=== PATIENT | female | born 1985 | race Caucasian/White ===

== ENCOUNTER → 2017-12-14 07:39 | Outpatient (CLI) | payer OTHER, SELFPAY ==
[2017-12-14 08:29] LABS: Add Manual Diff / Slide Review NO; Basophils Percent Auto 0.5 % (0-2); Eosinophils Percent Auto 1.4 % (2-4); Hematocrit 38.7 % (36-46); Hemoglobin 13.1 g/dL (12.0-16.0); Lymphocytes Percent Auto 30.1 % (25-40); Mean Corpuscular HGB Conc 33.8 % (30-36); Mean Corpuscular Hemoglobin 27.8 PG (26-34); Mean Corpuscular Volume 82.3 fL (80-100); Neutrophils Absolute Auto 4200 /uL (3000-5900); Platelet Count 209 X10^3/uL (150-400); Red Cell Distribution Width 13.8 % (11.6-14.8); White Blood Cell Count 6.9 X10^3/uL (4.5-11.0)
[2017-12-14 08:44] LABS: Alanine Aminotransferase 26 IU/L (9-52); Albumin 4.2 g/dL (3.5-5.0); Albumin Globulin Ratio 1.4 (1.0-2.8); Alkaline Phosphatase 80 U/L (38-126); Aspartate Aminotransferase 22 IU/L (14-36); BUN Creatinine Ratio 11.3 (6-22); Bilirubin Total 0.5 mg/dL (0.2-1.3); Blood Urea Nitrogen 9 mg/dL (7-17); Calcium 9.2 mg/dL (8.4-10.2); Carbon Dioxide 25 mmol/L (22-32); Chloride 103 mmol/L (98-107); Cholesterol 238 mg/dL (140-199); Estimated Glomerular Filt Rate > 60.0 mL/min (>60); Glucose 101 mg/dL (70-100); HDL Cholesterol 76 mg/dL (40-60); HEMOLYSIS < 15 (0-50); LDL Cholesterol Calculated 113 mg/dL (<100); Potassium 4.3 mmol/L (3.4-5.1); Sodium 139 mmol/L (137-145); Total Protein 7.2 g/dL (6.3-8.2); Triglycerides 243 mg/dL (35-150)
[2017-12-14 08:53] LABS: Hemoglobin A1C% w Est Avg Glu 5.3 % (4.0-6.0)
[2017-12-14 09:17] LABS: Thyroid Stimulating Hormone 3.31 uIU/mL (0.47-4.68)
== END ==
PROVIDERS: PCP Family Medicine; Visit Provider Family Medicine
DX: Z00.00 Encounter for general adult medical examination without abnormal findings (principal)
CPT/HCPCS: 36415; 80053; 80061; 83036; 84443; 85025

== ENCOUNTER → 2018-03-28 10:00 | Outpatient (CLI) | payer OTHER, SELFPAY | PROVIDERS: Family Provider Family Medicine; PCP Family Medicine | DX: Z23 Encounter for immunization (principal) | CPT/HCPCS: 90471; 90686 ==

== ENCOUNTER → 2018-11-02 06:50 | Outpatient (CLI) | payer OTHER, SELFPAY ==
[2018-11-02 09:25] LABS: Add Manual Diff / Slide Review NO; Basophils Absolute Auto 0 /uL (0-100); Basophils Percent Auto 0.5 % (0-2); Eosinophils Absolute Auto 100 /uL (0-450); Eosinophils Percent Auto 1.7 % (2-4); Hematocrit 42.7 % (36-46); Hemoglobin 14.2 g/dL (12.0-16.0); Lymphocytes Absolute Auto 2600 /uL (1100-4500); Lymphocytes Percent Auto 32.6 % (25-40); Mean Corpuscular HGB Conc 33.3 % (30-36); Mean Corpuscular Hemoglobin 29.9 PG (26-34); Mean Corpuscular Volume 89.8 fL (80-100); Monocytes Absolute Auto 600 /uL (0-900); Neutrophils Absolute Auto 4700 /uL (1500-7000); Neutrophils Percent Auto 58.2 % (50-75); Platelet Count 232 X10^3/uL (150-400); Red Blood Cell Count 4.76 X10^6/uL (4.0-5.2); White Blood Cell Count 8.1 X10^3/uL (4.5-11.0)
[2018-11-02 09:43] LABS: Alanine Aminotransferase 26 IU/L (9-52); Albumin 4.3 g/dL (3.5-5.0); Albumin Globulin Ratio 1.5 (1.0-2.8); Alkaline Phosphatase 79 U/L (38-126); Aspartate Aminotransferase 25 IU/L (14-36); BUN Creatinine Ratio 16.3 (6-22); Bilirubin Total 0.4 mg/dL (0.2-1.3); Blood Urea Nitrogen 13 mg/dL (7-17); Calcium 9.2 mg/dL (8.4-10.2); Carbon Dioxide 25 mmol/L (22-32); Chloride 103 mmol/L (98-107); Estimated Glomerular Filt Rate > 60.0 mL/min (>60); Globulin 2.8 g/dL (1.7-4.1); Glucose 95 mg/dL (70-100); HEMOLYSIS < 15 (0-50); Potassium 4.1 mmol/L (3.4-5.1); Sodium 137 mmol/L (137-145); Total Protein 7.1 g/dL (6.3-8.2)
[2018-11-02 10:00] LABS: Free T4, Direct Thyroxine 0.77 ng/dL (0.78-2.19)
[2018-11-02 10:13] LABS: Thyroid Stimulating Hormone 2.83 uIU/mL (0.47-4.68)
== END ==
PROVIDERS: Family Provider Family Medicine; PCP Family Medicine; Visit Provider Psychiatry & Neurology Psychiatry
DX: F33.9 Major depressive disorder, recurrent, unspecified (principal); F41.9 Anxiety disorder, unspecified
CPT/HCPCS: 36415; 80053; 84439; 84443; 85025

== ENCOUNTER → 2019-04-10 07:42 | Outpatient (CLI) | payer OTHER, SELFPAY | PROVIDERS: Family Provider Family Medicine; PCP Physician Assistant | DX: Z23 Encounter for immunization (principal) | CPT/HCPCS: 90471; 90686 ==

== ENCOUNTER → 2019-08-02 13:40 | Outpatient (ROUT) | payer OTHER, SELFPAY ==
[2019-08-02 15:16] LABS: Urine N gonorrhoeae NOT DETECTED
[2019-08-02 15:22] LABS: Urine Chlamydia DETECTED
== END ==
PROVIDERS: Family Provider Family Medicine; PCP Physician Assistant; Visit Provider Physician Assistant
DX: N89.8 Other specified noninflammatory disorders of vagina (principal)
CPT/HCPCS: 87491; 87591

== ENCOUNTER → 2019-08-02 16:35 | Outpatient (CLI) | payer OTHER, SELFPAY ==
[2019-08-02 18:53] LABS: Hepatitis B Surface Antigen NEGATIVE s/c (NEGATIVE)
[2019-08-02 19:08] LABS: HIV 1 & 2 Ab/Ag 4th Gen Combo NEGATIVE (NEGATIVE); Hep C Virus Ab w/Reflex Quant NEGATIVE s/c (NEGATIVE)
[2019-08-05 17:43] LABS: RPR Screen Nonreactive (Nonreactive)
[2019-08-09 14:45] LABS: HSV 1 IgM Screen Positive (Negative); HSV 2 IgM Screen Negative (Negative)
== END ==
PROVIDERS: Family Provider Physician Assistant; PCP Physician Assistant; Visit Provider Physician Assistant
DX: N89.8 Other specified noninflammatory disorders of vagina (principal); Z11.3 Encounter for screening for infections with a predominantly sexual mode of transmission
CPT/HCPCS: 36415; 86592; 86695; 86696; 86803; 87210; 87340; 87389; 87491; 87591

== ENCOUNTER → 2019-12-21 08:02 | Outpatient (CLI) | payer OTHER, SELFPAY ==
[2019-12-21 09:18] LABS: Add Manual Diff / Slide Review NO; Basophils Absolute Auto 0 /uL (0-100); Basophils Percent Auto 0.9 % (0-2); Eosinophils Absolute Auto 100 /uL (0-450); Eosinophils Percent Auto 2.2 % (2-4); Hematocrit 41.7 % (36-46); Hemoglobin 14.4 g/dL (12.0-16.0); Lymphocytes Absolute Auto 1800 /uL (1100-4500); Lymphocytes Percent Auto 37.2 % (25-40); Mean Corpuscular HGB Conc 34.6 % (30-36); Mean Corpuscular Hemoglobin 31.2 PG (26-34); Mean Corpuscular Volume 90.1 fL (80-100); Monocytes Absolute Auto 400 /uL (0-900); Monocytes Percent Auto 7.7 % (3-14); Neutrophils Absolute Auto 2500 /uL (1500-7000); Platelet Count 200 X10^3/uL (150-400); Red Blood Cell Count 4.63 X10^6/uL (4.0-5.2); Red Cell Distribution Width 12.7 % (11.6-14.8); White Blood Cell Count 4.9 X10^3/uL (4.5-11.0)
[2019-12-21 09:41] LABS: Hemoglobin A1C% w Est Avg Glu 5.3 % (4.0-6.0)
[2019-12-21 09:45] LABS: Alanine Aminotransferase 19 IU/L (<35); Albumin 4.2 g/dL (3.5-5.0); Albumin Globulin Ratio 1.4 (1.0-2.8); Alkaline Phosphatase 84 U/L (38-126); Aspartate Aminotransferase 26 IU/L (14-36); BUN Creatinine Ratio 14.1 (6-22); Bilirubin Total 0.5 mg/dL (0.2-1.3); Blood Urea Nitrogen 11 mg/dL (7-17); Calcium 9.5 mg/dL (8.4-10.2); Carbon Dioxide 27 mmol/L (22-32); Chloride 104 mmol/L (98-107); Cholesterol 256 mg/dL (140-199); Estimated Glomerular Filt Rate > 60.0 mL/min (>60); Glucose 107 mg/dL (70-100); HDL Cholesterol 62 mg/dL (40-60); HEMOLYSIS < 15 (0-50); LDL Cholesterol Calculated 163 mg/dL (<100); Potassium 4.5 mmol/L (3.4-5.1); Sodium 138 mmol/L (137-145); Total Protein 7.2 g/dL (6.3-8.2); Triglycerides 154 mg/dL (35-150)
== END ==
PROVIDERS: Family Provider Physician Assistant; PCP Family Medicine; Referring Provider Family Medicine; Visit Provider Family Medicine
DX: Z76.89 Persons encountering health services in other specified circumstances (principal)
CPT/HCPCS: 36415; 80053; 80061; 83036; 84443; 85025

== ENCOUNTER → 2020-05-01 01:13 | Outpatient (CLI) | payer OTHER, SELFPAY | PROVIDERS: Family Provider Physician Assistant; PCP Family Medicine; Referring Provider Internal Medicine; Visit Provider Internal Medicine | DX: Z23 Encounter for immunization (principal) | CPT/HCPCS: 90471; 90686 ==

== ENCOUNTER → 2020-05-19 10:12 | Outpatient (CLI) | payer OTHER, SELFPAY ==
[2020-05-19 10:46] LABS: COVID19 -Nasal RAPID Negative (Negative)
== END ==
PROVIDERS: Family Provider Physician Assistant; PCP Family Medicine; Visit Provider Physician Assistant
DX: Z11.59 Encounter for screening for other viral diseases (principal)
CPT/HCPCS: 87635

== ENCOUNTER → 2020-07-25 09:00 | Outpatient (CLI) | payer OTHER, SELFPAY ==
[2020-07-25] MEDS: COVID-19 VACC(MODERNA-1)/PF 100 MCG/0.5 ML VIAL IM (09:04)
== END ==
PROVIDERS: Family Provider Physician Assistant; PCP Family Medicine; Visit Provider Internal Medicine
DX: Z23 Encounter for immunization (principal)
CPT/HCPCS: 0011A; 91301

== ENCOUNTER → 2020-08-22 13:21 | Outpatient (CLI) | payer OTHER, SELFPAY ==
[2020-08-22] MEDS: COVID-19 VACC #2, MRNA(MOD) 100 MCG/0.5 ML VIAL IM (13:27)
== END ==
PROVIDERS: Family Provider Physician Assistant; PCP Family Medicine; Visit Provider Internal Medicine
DX: Z23 Encounter for immunization (principal)
CPT/HCPCS: 0012A; 91301

== ENCOUNTER → 2020-10-20 10:28 | Outpatient (CLI) | payer OTHER, SELFPAY | PROVIDERS: Family Provider Physician Assistant; PCP Family Medicine; Visit Provider Physician Assistant | DX: J02.9 Acute pharyngitis, unspecified (principal) | CPT/HCPCS: 87070 ==

== ENCOUNTER → 2020-10-22 11:37 | Outpatient (CLI) | payer OTHER, SELFPAY ==
[2020-10-22 13:15] LABS: COVID19 -Nasal RAPID Negative (Negative)
== END ==
PROVIDERS: Family Provider Physician Assistant; PCP Family Medicine; Visit Provider Physician Assistant
DX: Z01.812 Encounter for preprocedural laboratory examination (principal); Z20.822 Contact with and (suspected) exposure to COVID-19
CPT/HCPCS: 87635

== ENCOUNTER → 2021-03-07 11:45 | Outpatient (CLI) | payer OTHER, SELFPAY ==
[2021-03-07 13:32] LABS: COVID19 -Nasal RAPID Negative (Negative)
== END ==
PROVIDERS: PCP Family Medicine; Referring Provider Physician Assistant; Visit Provider Physician Assistant
DX: Z20.822 Contact with and (suspected) exposure to COVID-19 (principal); R53.83 Other fatigue
CPT/HCPCS: 87635

== ENCOUNTER 2021-04-09 08:15 | Outpatient (RCR) | payer OTHER, SELFPAY ==
--- NOTE | 2020-11-10 12:49 | PT.OIE ---
Current Diagnoses Plantar fascial fibromatosis (11/10/20) Pain in right foot (11/10/20) Pain in left foot (11/10/20) Soft tissue disorder, unspecified (11/10/20) Past Medical History (Last Updated 10/20/20 @ 10:06 by China Blanco PA-C) Anxiety Chicken pox Depression Foot pain Frequent UTI Human papilloma virus Hyperlipidemia Pharyngitis Plantar fasciitis, bilateral Shoulder pain Well adult exam Past Surgical History (Last Updated 04/25/19 @ 22:14 by Linnette Guzman) Anesthesia History of skin surgery History of surgery History of third molar tooth extraction Visit Care Team Role Provider Type Anant Watt DO Primary Care Provider Physician Specialty: Family Practice Address: [address] [place] [address], [id number] Email: [email or web address] Corrie Hanna DPM Attending Provider Physician Referring Provider Specialty: Podiatry Address: [address] [place] [address], [address] Email: [email or web address] [facility] Initial Evaluation PT-OP-A Visit Information Start: 11/09/20 08:02 Freq: Status: Active Protocol: Document 11/10/20 09:03 SAK (Rec: 11/10/20 10:26 SAK [id number]) Out-Patient Physical Therapy Visit Information Visit Information Visit Type Initial Evaluation Visit Start Time 09:00 Visit Stop Time 09:53 Total Visit Minutes 53 Visit Number 1 Number of NOZZLE CEMENT SPRAYER HELPER Visits 0 Evaluation Information Evaluation Date 11/10/20 PT-OP-B Current Condition Start: 11/09/20 08:02 Freq: Status: Active Protocol: Document 11/10/20 09:03 SAK (Rec: 11/10/20 10:26 SAK [id number]) Current Condition History of Current Condition Onset Date 1 year Current Complaints bilateral foot pain right greater than left History of Current Condition Made the decision to start running to try to help with weight loss. Pain started in left foot plus developed solis splints. Now left foot mostly better except occasional pain , pain right foot persists, at this time cant jog or run 50 ft without experiencing severe pain in right heel. Aso affecting right knee. Looked up information online about how to deal with plantar fascitis and as been doing stretching, ankle motion , heel and toe raises, grabbing things with toes, using objects including frozen water bottle to roll out bottom of foot muscles , tool massaging calves, doing ABC's. Feels pain as soon as gets out of bed. Had 1 deep foot massage that relieved pain for a few days a few months ago, though didn't try running at that time. Has plantar fascitis off the shelf orthotics Superfeet, but is now trying Envelop gel orthotics which she reports have made some difference. On feet most of the day for her work as an [employer]. Has a 10K in March 2021. Has been running for 2 years. Tends to push hard when she runs. Currently walking Kior 1x/wk, sore next day. No biking, or other cross training. Has Saw Dr. Hanna Future Testing and Treatments Planned follow-up with Dr. Hanna after PT Treatment Goals Patient/Caregiver Goals Be able to walk and run without heel pain Prior Functional Status Baseline Function- ADL's Independent Baseline Function- Mobility Independent Baseline Function- Gait no pain or limitations Baseline Function- Recreation/Hobbies running Current Functional Impairments (Reported) Functional Limitations- ADL's painful when standing Functional Limitations- Mobility/Gait painful to stand and walk right greater than left, Functional Limitations- Work/School continues to work but is painful, on feet most of day Functional Limitations- Recreation/ unable to run Hobbies Personal Factors Other Personal Factors That May Effect tends to push too hard, not Therapy/Recovery take time to stretch. PT-OP-C Subjective Start: 11/09/20 08:02 Freq: Status: Active Protocol: Document 11/10/20 09:03 KATIE (Rec: 11/10/20 10:26 [facility] [id number]) OP-PT Pain Assessment Pain Assessment Grid Paper Pain Assessment Grid Completed Yes Location bilateral heels Intensity 6 Scale Used Numeric (0 - 10) Description Aching,Burning,Chronic,Sharp, Tender,Tightness Frequency Frequent Pain Aggravating Factors ADL's,Activity,Standing, Walking Pain Alleviating Factors Cold,Heat,Inactivity,Rest PT-OP-D Balance Start: 11/09/20 08:02 Freq: Status: Active Protocol: Document 11/10/20 09:03 SAK (Rec: 11/10/20 10:26 SAK [id number]) OP-PT Balance Assessment Standing Balance Static Standing Balance Ability Normal Dynamic Standing Balance Ability Normal Standing Balance Comments SLS 10+ sec brigido Leiva Fall Scale Copyright Permission PT-OP-F Manual Assessment Start: 11/09/20 08:02 Freq: Status: Active Protocol: Document 11/10/20 09:03 SAK (Rec: 11/10/20 10:26 SAK [id number]) Manual Assessments Joint Mobility Assessment Joint Mobility Assessment hypermobile throughout, hyperextends knees PT-OP-G Mobility & Gait Start: 11/09/20 08:02 Freq: Status: Active Protocol: Document 11/10/20 09:03 SAK (Rec: 11/10/20 10:26 SAK [id number]) OP Gait Assessment Gait Gait Assistance Required: Independent Assistive Devices Assistive Device None Gait Deviations General Gait Pattern Antalgic Factors Limiting Gait Function Factors Limiting Gait Function Pain Comments Gait Comments knee hyperextension with heavy heelstrike PT-OP-H Neuro Start: 11/09/20 08:02 Freq: Status: Active Protocol: Document 11/10/20 09:03 SAK (Rec: 11/10/20 10:26 SAK [id number]) Sensation Evaluation Gross Sensation Gross Sensation WNL PT-OP-J Posture/Palpation/Skin Start: 11/09/20 08:02 Freq: Status: Active Protocol: Document 11/10/20 09:03 SAK (Rec: 11/10/20 10:26 SAK [id number]) Posture Evaluation Position Standing Knee Posture (L) Genu Recurvatum,(R) Genu Recurvatum Ankle/Foot Posture (L) Pronated,(R) Pronated,(R) Forefoot Eversion Palpation Assessment Location plantar fascia Palpation Findings Soft Tissue Tightness brigido heels Palpation Findings Tenderness PT-OP-K Range of Motion Start: 11/09/20 08:02 Freq: Status: Active Protocol: Document 11/10/20 09:03 SAK (Rec: 11/10/20 10:26 SAK [id number]) Knee Goniometric Range of Motion Knee brigido Knee ROM WFL Yes Comments genu recurvatum brigido Ankle and Foot Goniometric Range of Motion Ankle and Foot brigido Dorsiflexion with Knee Flexed 10 Dorsiflexion with Knee Extended 0 Plantarflexion 65 PT-OP-M Strength Start: 11/09/20 08:02 Freq: Status: Active Protocol: Document 11/10/20 09:03 [facility] (Rec: 11/10/20 10:26 [facility] [id number]) Knee Strength Knee Manual Muscle Testing brigido Flexion (S2) 5 Normal Extension (L3) 5 Normal Ankle/Foot Strength Ankle and Foot Manual Muscle Testing Right Dorsiflexion (L4) 5 Normal Plantarflexion (S1) 5 Normal Inversion 4 Good Eversion (S1) 5 Normal Left Dorsiflexion (L4) 5 Normal Plantarflexion (S1) 5 Normal Inversion 5 Normal Eversion (S1) 5 Normal PT-OP-Q Treatments Start: 11/09/20 08:02 Freq: Status: Active Protocol: Document 11/10/20 09:03 [facility] (Rec: 11/10/20 10:26 [facility] [id number]) Manual Therapy Treatment Taping left foot and calf Treatment Focus pain relief Type of Tape Kinesio Tape Skin Inspection intact Comments I strip with base at heel, no stretch heel to base of toes, up center of calf I strip 50-75% stretch for arch support Self-Care/Home Management Treatment Education Patient Education Home Exercise Program,Joint Protection,Pain Management, Posture Other Education education for self-taping with kinesiotape for plantar fascitis PT-OP-R Modalities Start: 11/09/20 08:02 Freq: Status: Active Protocol: Document 11/10/20 09:03 [facility] (Rec: 11/10/20 10:26 [facility] [id number]) Hot Pack/Cold Pack Treatment Ice Massage Location right heel Patient Position Hooklying Treatment Duration (minutes) 3 Patient Tolerance Fair Iontophoresis Treatment right heel Treatment Medication Dexamethasone (-) Medication Amount (mL) (ml) 1.0 Medication Dosage 4 mg/ml Treatment Duration (minutes) 3 Comment Treatment Comment patient to wear 6 hrs PT-OP-T Assessment and Plan Start: 11/09/20 08:02 Freq: Status: Active Protocol: Document 11/10/20 09:03 [facility] (Rec: 11/10/20 10:26 [facility] [id number]) Physical Therapy Assessment Rehab Potential Rehabilitation Potential Excellent Evaluation Complexity Number of Personal Factors/Comorbidities 1-2 Number of Body Systems Impaired 3 Clinical Presentation at Evaluation Evolving Impairments Impairments Activity Tolerance,Pain, Posture,Soft Tissue Mobility Goals Four Impairment gastrocnemius muscle tightness Short Term Goal (STG) Patient to be independent with gastrocnemius stretching STG Duration 11/28/20 Principal Network Architect Goal (LTG) Patient will demonstrate normal ankle dorsiflexion ROM for improve foot function LTG Duration 02/08/21 Three Impairment Inability to stand, walk, or run without increase in foot pain Short Term Goal (STG) Patient will be able to tolerate a full workday and walk 2-3 miles without anb increase in pain STG Duration 12/05/20 Principal Network Architect Goal (LTG) Patient will be able to walk 5 miles, run 2-3 miles without an increase in pain LTG Duration 02/08/21 Two Impairment recurvatum brigido knees, brigido foot pronation, right foot eversion Short Term Goal (STG) Patient to demonstrate good understanding of neutral alignment and be independent with ther ex and self- correction of alignment STG Duration 12/05/20 [facility] Goal (LTG) Patient to demonstrate at least 75% improvement in LE alignment statically and dynamically LTG Duration 02/08/21 One Impairment pain brigido heels right greater than left 6/10 Short Term Goal (STG) decrease pain to no greater than 3/10 Principal Network Architect Goal (LTG) decrease pain to no greater than 1/10 LTG Duration 02/08/21 Assessment Summary Assessment Patient presents to PT with function-limiting heel pain right greater than left after initiating running 1 year ago. Signs and symptoms consistent with plantar fascitis. She has been diligent about trying to do exercise, ice, use orthotics. Left side has improved significantly with what she has been doing but pain persists especially in the right at a high level causing pain with standing and walking, and an inability to run for exercise as she would like to be able doing. Patient has limited ankle dorsiflexion bilaterally right greater than left, has brigido pronated feet right greater than left and everted right foot. She has been doing calf stretching with bent knee which we changed to straight knee to address gastrocnemius muscle. She was taught short foot exercise to improve strength of medial longitudinal arch, instruction regarding importance of neutral foot alignment, and decreasing her knee recurvatum was done. Ice massage and iontophoresis were done to right heel. Kinesiotape was applied to patient's left LE and she was instructed in self -taping and issued kinesiotape to use on right LE when iontophoresis patch removed later. She demonstrated a good understanding of the above, is highly motivated and receptive to instruction. Physical Therapy Plan Frequency and Duration Frequency of Treatment 20 visits Duration of Treatment 12 weeks Plan of Care Start Date 11/10/20 Plan of Care End Date 02/08/21 Therapeutic Interventions Therapeutic Interventions Gait Training,Home Exercise Program,Manual Therapy, Neuromuscular Re-education, Patient/Caregiver Education, Self-Care/Home Management,Soft Tissue Mobilization,Taping, Therapeutic Activities, Vestibular Rehabilitation Next Visit Focus/Plan Next Note Type Treatment Note Next Visit Plan Review HEP, self-taping, gait evaluation, progression of HEP as indicated. Trial ultrasound to heel. Continue with iontophoresis and kinesiotape.
--- NOTE | 2020-11-10 12:49 | PT.OPPOC ---
Physical, Occupational & Speech Therapy At [facility] Current Diagnoses Plantar fascial fibromatosis (11/10/20) Pain in right foot (11/10/20) Pain in left foot (11/10/20) Soft tissue disorder, unspecified (11/10/20) Visit Care Team Role Provider Type Anant Watt DO Primary Care Provider Physician Specialty: Family Practice Address: [address] [place] [address], [address] Email: [email or web address] Corrie Hanna DPM Attending Provider Physician Referring Provider Specialty: Podiatry Address: [address] [place] [address], [address] Email: [email or web address] Plan Of Care PT-OP-T Assessment and Plan Start: 11/09/20 08:02 Freq: Status: Active Protocol: Document 11/10/20 09:03 KATIE (Rec: 11/10/20 10:26 [facility] [id number]) Physical Therapy Assessment Rehab Potential Rehabilitation Potential Excellent Evaluation Complexity Number of Personal Factors/Comorbidities 1-2 Number of Body Systems Impaired 3 Clinical Presentation at Evaluation Evolving Impairments Impairments Activity Tolerance,Pain, Posture,Soft Tissue Mobility Goals Four Impairment gastrocnemius muscle tightness Short Term Goal (STG) Patient to be independent with gastrocnemius stretching STG Duration 11/28/20 Orthodontic Technician Goal (LTG) Patient will demonstrate normal ankle dorsiflexion ROM for improve foot function LTG Duration 02/08/21 Three Impairment Inability to stand, walk, or run without increase in foot pain Short Term Goal (STG) Patient will be able to tolerate a full workday and walk 2-3 miles without anb increase in pain STG Duration 12/05/20 Orthodontic Technician Goal (LTG) Patient will be able to walk 5 miles, run 2-3 miles without an increase in pain LTG Duration 02/08/21 Two Impairment recurvatum brigido knees, brigido foot pronation, right foot eversion Short Term Goal (STG) Patient to demonstrate good understanding of neutral alignment and be independent with ther ex and self- correction of alignment STG Duration 12/05/20 Orthodontic Technician Goal (LTG) Patient to demonstrate at least 75% improvement in LE alignment statically and dynamically LTG Duration 02/08/21 One Impairment pain brigido heels right greater than left 6/10 Short Term Goal (STG) decrease pain to no greater than 3/10 Detention Goal (LTG) decrease pain to no greater than 1/10 LTG Duration 02/08/21 Assessment Summary Assessment Patient presents to PT with function-limiting heel pain right greater than left after initiating running 1 year ago. Signs and symptoms consistent with plantar fascitis. She has been diligent about trying to do exercise, ice, use orthotics. Left side has improved significantly with what she has been doing but pain persists especially in the right at a high level causing pain with standing and walking, and an inability to run for exercise as she would like to be able doing. Patient has limited ankle dorsiflexion bilaterally right greater than left, has brigido pronated feet right greater than left and everted right foot. She has been doing calf stretching with bent knee which we changed to straight knee to address gastrocnemius muscle. She was taught short foot exercise to improve strength of medial longitudinal arch, instruction regarding importance of neutral foot alignment, and decreasing her knee recurvatum was done. Ice massage and iontophoresis were done to right heel. Kinesiotape was applied to patient's left LE and she was instructed in self -taping and issued kinesiotape to use on right LE when iontophoresis patch removed later. She demonstrated a good understanding of the above, is highly motivated and receptive to instruction. Physical Therapy Plan Frequency and Duration Frequency of Treatment 20 visits Duration of Treatment 12 weeks Plan of Care Start Date 11/10/20 Plan of Care End Date 02/08/21 Therapeutic Interventions Therapeutic Interventions Gait Training,Home Exercise Program,Manual Therapy, Neuromuscular Re-education, Patient/Caregiver Education, Self-Care/Home Management,Soft Tissue Mobilization,Taping, Therapeutic Activities, Vestibular Rehabilitation Next Visit Focus/Plan Next Note Type Treatment Note Next Visit Plan Review HEP, self-taping, gait evaluation, progression of HEP as indicated. Trial ultrasound to heel. Continue with iontophoresis and kinesiotape. Plan of Care Dates Plan of Care Start Date 11/10/20 Plan of Care End Date 02/08/21 Electronically Signed by: Destinee Sinha, PT 11/10/20 1249 Please Sign and Return: I have reviewed this Plan of Care and certify that the skilled therapy services above are required to meet the patient?s needs. Physician Signature Date Printed Name and Credentials Clinical Instructor Signature Printed Name and Credentials
--- NOTE | 2020-11-18 16:30 | PT.OTN ---
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) Pain in right foot (11/18/20) Pain in left foot (11/18/20) Soft tissue disorder, unspecified (11/18/20) Physical Therapy Treatment Note PT-OP-A Visit Information Start: 11/09/20 08:02 Freq: Status: Active Protocol: Document 11/10/20 09:03 SAK (Rec: 11/10/20 10:26 SAK [id number]) Out-Patient Physical Therapy Visit Information Visit Information Visit Type Initial Evaluation Visit Start Time 09:00 Visit Stop Time 09:53 Total Visit Minutes 53 Visit Number 1 Number of INTERNET MARKETER Visits 0 Evaluation Information Evaluation Date 11/10/20 PT-OP-B Current Condition Start: 11/09/20 08:02 Freq: Status: Active Protocol: Document 11/10/20 09:03 SAK (Rec: 11/10/20 10:26 SAK [id number]) Current Condition History of Current Condition Onset Date 1 year Current Complaints bilateral foot pain right greater than left History of Current Condition Made the decision to start running to try to help with weight loss. Pain started in left foot plus developed solis splints. Now left foot mostly better except occasional pain , pain right foot persists, at this time cant jog or run 50 ft without experiencing severe pain in right heel. Aso affecting right knee. Looked up information online about how to deal with plantar fascitis and as been doing stretching, ankle motion , heel and toe raises, grabbing things with toes, using objects including frozen water bottle to roll out bottom of foot muscles , tool massaging calves, doing ABC's. Feels pain as soon as gets out of bed. Had 1 deep foot massage that relieved pain for a few days a few months ago, though didn't try running at that time. Has plantar fascitis off the shelf orthotics Superfeet, but is now trying Envelop gel orthotics which she reports have made some difference. 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 Has a 10K in March 2021. Has been running for 2 years. Tends to push hard when she runs. Currently walking [employer] 1x/wk, sore next day. No biking, or other cross training. Has Saw Dr. Hanna Future Testing and Treatments Planned follow-up with Dr. Hanna after PT Treatment Goals Patient/Caregiver Goals Be able to walk and run without heel pain Prior Functional Status Baseline Function- ADL's Independent Baseline Function- Mobility Independent Baseline Function- Gait no pain or limitations Baseline Function- Recreation/Hobbies running Current Functional Impairments (Reported) Functional Limitations- ADL's painful when standing Functional Limitations- Mobility/Gait painful to stand and walk right greater than left, Functional Limitations- Work/School continues to work but is painful, on feet most of day Functional Limitations- Recreation/ unable to run Hobbies Personal Factors Other Personal Factors That May Effect tends to push too hard, not Therapy/Recovery take time to stretch. PT-OP-C Subjective Start: 11/09/20 08:02 Freq: Status: Active Protocol: Document 11/18/20 09:00 [facility] (Rec: 11/18/20 09:47 [facility] [id number]) OP-PT Subjective Patient Comments Patient Comments Improved pain after last session for 4-5 days. Pain increased because felt so good , wore a lot of different shoes then felt increase in pain. States has a bad habit of not tying her shoes, noticed felt better when did tie shoes due to increased support. PT-OP-D Balance Start: 11/09/20 08:02 Freq: Status: Active Protocol: Document 11/10/20 09:03 [facility] (Rec: 11/10/20 10:26 [facility] [id number]) OP-PT Balance Assessment Standing Balance Static Standing Balance Ability Normal Dynamic Standing Balance Ability Normal Standing Balance Comments SLS 10+ sec brigido Leiva Fall Scale Copyright Permission PT-OP-F Manual Assessment Start: 11/09/20 08:02 Freq: Status: Active Protocol: Document 11/10/20 09:03 [facility] (Rec: 11/10/20 10:26 [facility] [id number]) Manual Assessments Joint Mobility Assessment Joint Mobility Assessment hypermobile throughout, hyperextends knees PT-OP-G Mobility & Gait Start: 11/09/20 08:02 Freq: Status: Active Protocol: Document 11/10/20 09:03 [facility] (Rec: 11/10/20 10:26 [facility] [id number]) OP Gait Assessment Gait Gait Assistance Required: Independent Assistive Devices Assistive Device None Gait Deviations General Gait Pattern Antalgic Factors Limiting Gait Function Factors Limiting Gait Function Pain Comments Gait Comments knee hyperextension with heavy heelstrike PT-OP-H Neuro Start: 11/09/20 08:02 Freq: Status: Active Protocol: Document 11/10/20 09:03 [facility] (Rec: 11/10/20 10:26 SAK [id number]) Sensation Evaluation Gross Sensation Gross Sensation WNL PT-OP-J Posture/Palpation/Skin Start: 11/09/20 08:02 Freq: Status: Active Protocol: Document 11/10/20 09:03 SAK (Rec: 11/10/20 10:26 SAK [id number]) Posture Evaluation Position Standing Knee Posture (L) Genu Recurvatum,(R) Genu Recurvatum Ankle/Foot Posture (L) Pronated,(R) Pronated,(R) Forefoot Eversion Palpation Assessment Location plantar fascia Palpation Findings Soft Tissue Tightness brigido heels Palpation Findings Tenderness PT-OP-K Range of Motion Start: 11/09/20 08:02 Freq: Status: Active Protocol: Document 11/10/20 09:03 [facility] (Rec: 11/10/20 10:26 SAK [id number]) Knee Goniometric Range of Motion Knee brigido Knee ROM WFL Yes Comments genu recurvatum brigido Ankle and Foot Goniometric Range of Motion Ankle and Foot brigido Dorsiflexion with Knee Flexed 10 Dorsiflexion with Knee Extended 0 Plantarflexion 65 PT-OP-M Strength Start: 11/09/20 08:02 Freq: Status: Active Protocol: Document 11/10/20 09:03 [facility] (Rec: 11/10/20 10:26 SAK [id number]) Knee Strength Knee Manual Muscle Testing brigido Flexion (S2) 5 Normal Extension (L3) 5 Normal Ankle/Foot Strength Ankle and Foot Manual Muscle Testing Right Dorsiflexion (L4) 5 Normal Plantarflexion (S1) 5 Normal Inversion 4 Good Eversion (S1) 5 Normal Left Dorsiflexion (L4) 5 Normal Plantarflexion (S1) 5 Normal Inversion 5 Normal Eversion (S1) 5 Normal PT-OP-Q Treatments Start: 11/09/20 08:02 Freq: Status: Active Protocol: Document 11/18/20 09:00 [facility]AK (Rec: 11/18/20 09:47 SAK [id number]) Cardio Equipment Treadmill Duration (Minutes) 4 Other gait evaluation, cues for neutral posture Therapeutic Exercises Standing Exercises wall posture Reps/Minutes 5x HC stretch Reps/Minutes 2x Comments cues for neutral alignment, trial JUVENAL, lunge, stair Manual Therapy Treatment Soft Tissue Mobilization medial longitudinal arch Intensity/Depth Moderate Taping left foot and calf Comments patient to tape self Self-Care/Home Management Treatment Education Patient Education Home Exercise Program,Joint Protection,Pain Management, Posture Other Education review of self-taping, HC stretching options PT-OP-R Modalities Start: 11/09/20 08:02 Freq: Status: Active Protocol: Document 11/18/20 09:00 [facility] (Rec: 11/18/20 16:30 [facility] [id number]) Hot Pack/Cold Pack Treatment Ice Massage Comments sent ice cups for patient do do later after ionophoresis removed. Iontophoresis Treatment left heel Treatment Medication Dexamethasone (-) Medication Amount (mL) (ml) 1.0 Treatment Duration (minutes) 3 Patient Tolerance Good right heel Treatment Medication Dexamethasone (-) Medication Amount (mL) (ml) 1.0 Medication Dosage 4 mg/ml Treatment Duration (minutes) 3 Patient Tolerance Good Ultrasound Therapy Treatment right heel Patient Position Supine Coupling Medium Ultrasound Gel Frequency Setting (mHz) 3 Intensity Setting (w/cm2) 1.0 Comments heel and plantar fascia PT-OP-T Assessment and Plan Start: 11/09/20 08:02 Freq: Status: Active Protocol: Document 11/18/20 09:00 [facility] (Rec: 11/18/20 09:47 [facility] [id number]) Physical Therapy Assessment Goals Four Impairment gastrocnemius muscle tightness Short Term Goal (STG) Patient to be independent with gastrocnemius stretching STG Duration 11/28/20 Roll Out Manager Goal (LTG) Patient will demonstrate normal ankle dorsiflexion ROM for improve foot function LTG Duration 02/08/21 Three Impairment Inability to stand, walk, or run without increase in foot pain Short Term Goal (STG) Patient will be able to tolerate a full workday and walk 2-3 miles without an increase in pain STG Duration 12/05/20 Roll Out Manager Goal (LTG) Patient will be able to walk 5 miles, run 2-3 miles without an increase in pain LTG Duration 02/08/21 Two Impairment recurvatum brigido knees, brigido foot pronation, right foot eversion Short Term Goal (STG) Patient to demonstrate good understanding of neutral alignment and be independent with ther ex and self- correction of alignment STG Duration 12/05/20 Usp Goal (LTG) Patient to demonstrate at least 75% improvement in LE alignment statically and dynamically LTG Duration 02/08/21 One Impairment pain brigido heels right greater than left 6/10 Short Term Goal (STG) decrease pain to no greater than 3/10 Usp Goal (LTG) decrease pain to no greater than 1/10 LTG Duration 02/08/21 Assessment Summary Assessment Patient responded well to iontophoresis and ice last session, noting difference when wears better shoes, wearing flat shoes today with poor support and notes increase in pain. Demonstrates good understanding of self-taping; was issued kinesiotape for self-taping after removes iontophoresis. At eval unable to feel muscle contraction in arch, but able to feel today with less foot compensation with short foot exercise. Physical Therapy Plan Frequency and Duration Frequency of Treatment 20 visits Duration of Treatment 12 weeks Plan of Care Start Date 11/10/20 Plan of Care End Date 02/08/21 Therapeutic Interventions Therapeutic Interventions Gait Training,Home Exercise Program,Manual Therapy, Neuromuscular Re-education, Patient/Caregiver Education, Self-Care/Home Management,Soft Tissue Mobilization,Taping, Therapeutic Activities, Vestibular Rehabilitation Next Visit Focus/Plan Next Note Type Treatment Note Next Visit Plan Review HEP, self-taping, gait evaluation, progression of HEP as indicated. Trial ultrasound to heel. Continue with iontophoresis and kinesiotape.
--- NOTE | 2020-11-25 16:49 | PT.OTN ---
Current Diagnoses Plantar fascial fibromatosis (11/25/20) Pain in right foot (11/25/20) Pain in left foot (11/25/20) Soft tissue disorder, unspecified (11/25/20) Physical Therapy Treatment Note PT-OP-A Visit Information Start: 11/09/20 08:02 Freq: Status: Active Protocol: Document 11/25/20 09:00 [facility]AK (Rec: 11/25/20 09:48 SAK [id number]) Out-Patient Physical Therapy Visit Information Visit Information Visit Type Treatment Note Visit Note Pain better 10-15% wants to try jogging tomorrow. 10/25 right now Has been taping herself Brought therabands to make sure they are ok. Last walked [place] and was sore all over. Trying hard to not hyperextend knees, land on heels so hard, and correct alignment. Pain worst lateral side right foot. Visit Start Time 09:00 Visit Stop Time 09:50 Total Visit Minutes 50 Visit Number 3 Evaluation Information Evaluation Date 11/10/20 PT-OP-B Current Condition Start: 11/09/20 08:02 Freq: Status: Active Protocol: Document 11/25/20 09:00 SAK (Rec: 11/25/20 09:48 [facility] [id number]) Current Condition History of Current Condition Onset Date 1 year Current Complaints bilateral foot pain right greater than left History of Current Condition Made the decision to start running to try to help with weight loss. Pain started in left foot plus developed solis splints. Now left foot mostly better except occasional pain , pain right foot persists, at this time cant jog or run 50 ft without experiencing severe pain in right heel. Aso affecting right knee. Looked up information online about how to deal with plantar fascitis and as been doing stretching, ankle motion , heel and toe raises, grabbing things with toes, using objects including frozen water bottle to roll out bottom of foot muscles , tool massaging calves, doing ABC's. Feels pain as soon as gets out of bed. Had 1 deep foot massage that relieved pain for a few days a few months ago, though didn't try running at that time. Has plantar fascitis off the shelf orthotics Superfeet, but is now trying Envelop gel orthotics which she reports have made some difference. 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 Has a 10K in March 2021. Has been running for 2 years. Tends to push hard when she runs. Currently walking [place] [place] 1x/wk, sore next day. No biking, or other cross training. Has Saw Dr. Hanna Future Testing and Treatments Planned follow-up with Dr. Hanna after PT PT-OP-C Subjective Start: 11/09/20 08:02 Freq: Status: Active Protocol: Document 11/18/20 09:00 [facility]AK (Rec: 11/18/20 09:47 SAK [id number]) OP-PT Subjective Patient Comments Patient Comments Improved pain after last session for 4-5 days. Pain increased because felt so good , wore a lot of different shoes then felt increase in pain. States has a bad habit of not tying her shoes, noticed felt better when did tie shoes due to increased support. PT-OP-D Balance Start: 11/09/20 08:02 Freq: Status: Active Protocol: Document 11/10/20 09:03 SAK (Rec: 11/10/20 10:26 [facility] [id number]) OP-PT Balance Assessment Standing Balance Static Standing Balance Ability Normal Dynamic Standing Balance Ability Normal Standing Balance Comments SLS 10+ sec brigido Leiva Fall Scale Copyright Permission PT-OP-F Manual Assessment Start: 11/09/20 08:02 Freq: Status: Active Protocol: Document 11/10/20 09:03 [facility]AK (Rec: 11/10/20 10:26 SAK [id number]) Manual Assessments Joint Mobility Assessment Joint Mobility Assessment hypermobile throughout, hyperextends knees PT-OP-G Mobility & Gait Start: 11/09/20 08:02 Freq: Status: Active Protocol: Document 11/10/20 09:03 [facility]AK (Rec: 11/10/20 10:26 SAK [id number]) OP Gait Assessment Gait Gait Assistance Required: Independent Assistive Devices Assistive Device None Gait Deviations General Gait Pattern Antalgic Factors Limiting Gait Function Factors Limiting Gait Function Pain Comments Gait Comments knee hyperextension with heavy heelstrike PT-OP-H Neuro Start: 11/09/20 08:02 Freq: Status: Active Protocol: Document 11/10/20 09:03 SAK (Rec: 11/10/20 10:26 SAK [id number]) Sensation Evaluation Gross Sensation Gross Sensation WNL PT-OP-J Posture/Palpation/Skin Start: 11/09/20 08:02 Freq: Status: Active Protocol: Document 11/10/20 09:03 SAK (Rec: 11/10/20 10:26 SAK [id number]) Posture Evaluation Position Standing Knee Posture (L) Genu Recurvatum,(R) Genu Recurvatum Ankle/Foot Posture (L) Pronated,(R) Pronated,(R) Forefoot Eversion Palpation Assessment Location plantar fascia Palpation Findings Soft Tissue Tightness brigido heels Palpation Findings Tenderness PT-OP-K Range of Motion Start: 11/09/20 08:02 Freq: Status: Active Protocol: Document 11/10/20 09:03 SAK (Rec: 11/10/20 10:26 SAK [id number]) Knee Goniometric Range of Motion Knee brigido Knee ROM WFL Yes Comments genu recurvatum brigido Ankle and Foot Goniometric Range of Motion Ankle and Foot brigido Dorsiflexion with Knee Flexed 10 Dorsiflexion with Knee Extended 0 Plantarflexion 65 PT-OP-M Strength Start: 11/09/20 08:02 Freq: Status: Active Protocol: Document 11/10/20 09:03 [facility] (Rec: 11/10/20 10:26 [facility] [id number]) Knee Strength Knee Manual Muscle Testing brigido Flexion (S2) 5 Normal Extension (L3) 5 Normal Ankle/Foot Strength Ankle and Foot Manual Muscle Testing Right Dorsiflexion (L4) 5 Normal Plantarflexion (S1) 5 Normal Inversion 4 Good Eversion (S1) 5 Normal Left Dorsiflexion (L4) 5 Normal Plantarflexion (S1) 5 Normal Inversion 5 Normal Eversion (S1) 5 Normal PT-OP-Q Treatments Start: 11/09/20 08:02 Freq: Status: Active Protocol: Document 11/25/20 09:00 SAK (Rec: 11/25/20 09:48 SAK [id number]) Cardio Equipment Bicycle (Upright) Duration (Minutes) 8 Resistance 5 Seat Position 4 Other cues for neutral LE alignment Treadmill Duration (Minutes) 5 Speed 3 Incline 0 Other cues for shorter steps, soft knees, core stab Therapeutic Exercises Sidelying Exercises clamshell Reps/Minutes 10x brigido Sitting Exercises short foot Reps/Minutes 5x Comments verbal and manual cues Standing Exercises HC stretch Reps/Minutes 2x Comments JUVENAL, neutral, with IR, cues for soft knees Manual Therapy Treatment Taping left foot and calf Comments patient to tape self after removes iontophoresis Self-Care/Home Management Treatment Education Patient Education Home Exercise Program,Joint Protection,Pain Management, Posture Other Education walking, jogging form and alignment, recommendation to not jog PT-OP-R Modalities Start: 11/09/20 08:02 Freq: Status: Active Protocol: Document 11/25/20 09:00 [facility] (Rec: 11/25/20 09:48 [facility] [id number]) Hot Pack/Cold Pack Treatment Ice Massage Location right heel, lateral foot Treatment Duration (minutes) 3 Patient Tolerance Good Iontophoresis Treatment left heel Treatment Medication Dexamethasone (-) Medication Amount (mL) (ml) 1.0 Treatment Duration (minutes) 3 Patient Tolerance Good right heel Treatment Medication Dexamethasone (-) Medication Amount (mL) (ml) 1.0 Medication Dosage 4 mg/ml Treatment Duration (minutes) 3 Patient Tolerance Good Comment Treatment Comment moved more toward lateral foot right Ultrasound Therapy Treatment right heel Patient Position Supine Coupling Medium Ultrasound Gel Frequency Setting (mHz) 3 Intensity Setting (w/cm2) 1.0 Comments heel and plantar fascia PT-OP-T Assessment and Plan Start: 11/09/20 08:02 Freq: Status: Active Protocol: Document 11/25/20 09:00 [facility] (Rec: 11/25/20 09:48 [facility] [id number]) Physical Therapy Assessment Goals Four Impairment gastrocnemius muscle tightness Short Term Goal (STG) Patient to be independent with gastrocnemius stretching STG Duration 11/28/20 Title Department Manager Goal (LTG) Patient will demonstrate normal ankle dorsiflexion ROM for improve foot function LTG Duration 02/08/21 Three Impairment Inability to stand, walk, or run without increase in foot pain Short Term Goal (STG) Patient will be able to tolerate a full workday and walk 2-3 miles without an increase in pain STG Duration 12/05/20 Title Department Manager Goal (LTG) Patient will be able to walk 5 miles, run 2-3 miles without an increase in pain LTG Duration 02/08/21 Two Impairment recurvatum brigido knees, brigido foot pronation, right foot eversion Short Term Goal (STG) Patient to demonstrate good understanding of neutral alignment and be independent with ther ex and self- correction of alignment STG Duration 12/05/20 Mcfp Goal (LTG) Patient to demonstrate at least 75% improvement in LE alignment statically and dynamically LTG Duration 02/08/21 One Impairment pain brigido heels right greater than left 6/10 Short Term Goal (STG) decrease pain to no greater than 3/10 Mcfp Goal (LTG) decrease pain to no greater than 1/10 LTG Duration 02/08/21 Assessment Summary Assessment Patient verbalized understanding she shouldn't yet jog, was pleased with trial exercise bike and how well tolerated that was. Demonstrating improved awareness of soft knees, neutral foot, short foot exercise. Ran out of time for adding theraband exercises but PT to send to patient as she will be gone x 1 week. Feel weakness in hips, especially ER and core weakness contributing to pain as well. Physical Therapy Plan Frequency and Duration Frequency of Treatment 20 visits Duration of Treatment 12 weeks Plan of Care Start Date 11/10/20 Plan of Care End Date 02/08/21 Therapeutic Interventions Therapeutic Interventions Gait Training,Home Exercise Program,Manual Therapy, Neuromuscular Re-education, Patient/Caregiver Education, Self-Care/Home Management,Soft Tissue Mobilization,Taping, Therapeutic Activities, Vestibular Rehabilitation Next Visit Focus/Plan Next Note Type Treatment Note Next Visit Plan BAPS board, standing bal ex, piano toes, SLS ex. Continue with modalities, manual therapy, progression of HEP, patient education regarding alignment and form for walking , possibly jogging. Incorporate hip and core strengthening as able.
--- NOTE | 2021-01-27 16:13 | PT.OTN ---
Current Diagnoses Plantar fascial fibromatosis (01/27/21) Pain in right foot (01/27/21) Pain in left foot (01/27/21) Soft tissue disorder, unspecified (01/27/21) Physical Therapy Treatment Note PT-OP-A Visit Information Start: 11/09/20 08:02 Freq: Status: Active Protocol: Document 01/27/21 08:17 [facility]AK (Rec: 01/27/21 08:59 [facility]AK [id number]) Out-Patient Physical Therapy Visit Information Visit Information Visit Type Treatment Note Visit Start Time 08:15 Visit Stop Time 09:10 Total Visit Minutes 55 Visit Number 4 Evaluation Information Evaluation Date 11/10/20 PT-OP-B Current Condition Start: 11/09/20 08:02 Freq: Status: Active Protocol: Document 11/25/20 09:00 SAK (Rec: 11/25/20 09:48 SAK [id number]) Current Condition History of Current Condition Onset Date 1 year Current Complaints bilateral foot pain right greater than left History of Current Condition Made the decision to start running to try to help with weight loss. Pain started in left foot plus developed solis splints. Now left foot mostly better except occasional pain , pain right foot persists, at this time cant jog or run 50 ft without experiencing severe pain in right heel. Aso affecting right knee. Looked up information online about how to deal with plantar fascitis and as been doing stretching, ankle motion , heel and toe raises, grabbing things with toes, using objects including frozen water bottle to roll out bottom of foot muscles , tool massaging calves, doing ABC's. Feels pain as soon as gets out of bed. Had 1 deep foot massage that relieved pain for a few days a few months ago, though didn't try running at that time. Has plantar fascitis off the shelf orthotics Superfeet, but is now trying Envelop gel orthotics which she reports have made some difference. 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 Has a 10K in March 2021. Has been running for 2 years. Tends to push hard when she runs. Currently walking [employer] trail 1x/wk, sore next day. No biking, or other cross training. Has Saw Dr. Hanna Future Testing and Treatments Planned follow-up with Dr. Hanna after PT PT-OP-C Subjective Start: 11/09/20 08:02 Freq: Status: Active Protocol: Document 01/27/21 08:17 [facility] (Rec: 01/27/21 15:53 [facility] [id number]) OP-PT Subjective Patient Comments Patient Comments Reports she feels she has improved some, doing HEP, icing. Trying interval 5 min walk, 1 min jog, progressed this week to 5 min walk 2 min jog this week, still painful up to 5/10. Hasn't tried deep water walk yet. Now able to stand up from bed now with minimal pain. Also noticing yesterday feet pronating with new shoes, tried lacing tighter and that was not helpful, hurt foot. Has been icing, hasn't used kinesiotape . Has 10k in March Patient Reported Progress Improving Patient Questionnaires Foot & Ankle Ability Measure- ADL and Sports FAAM-ADL Score 40 Lower Extremity Functional Scale LEFS Score 74 OP-PT Pain Assessment Location bilateral heels Intensity 5 Scale Used Numeric (0 - 10) Description Aching,Burning,Chronic,Sharp, Tender,Tightness Frequency Frequent Pain Aggravating Factors Activity,Exercise,Standing, Walking,Stair Climbing Pain Alleviating Factors Cold,Inactivity,Rest PT-OP-D Balance Start: 11/09/20 08:02 Freq: Status: Active Protocol: Document 11/10/20 09:03 [facility] (Rec: 11/10/20 10:26 [facility] [id number]) OP-PT Balance Assessment Standing Balance Static Standing Balance Ability Normal Dynamic Standing Balance Ability Normal Standing Balance Comments SLS 10+ sec brigido Leiva Fall Scale Copyright Permission PT-OP-F Manual Assessment Start: 11/09/20 08:02 Freq: Status: Active Protocol: Document 11/10/20 09:03 [facility] (Rec: 11/10/20 10:26 [facility] [id number]) Manual Assessments Joint Mobility Assessment Joint Mobility Assessment hypermobile throughout, hyperextends knees PT-OP-G Mobility & Gait Start: 11/09/20 08:02 Freq: Status: Active Protocol: Document 11/10/20 09:03 [facility] (Rec: 11/10/20 10:26 [facility] [id number]) OP Gait Assessment Gait Gait Assistance Required: Independent Assistive Devices Assistive Device None Gait Deviations General Gait Pattern Antalgic Factors Limiting Gait Function Factors Limiting Gait Function Pain Comments Gait Comments knee hyperextension with heavy heelstrike PT-OP-H Neuro Start: 11/09/20 08:02 Freq: Status: Active Protocol: Document 11/10/20 09:03 [facility] (Rec: 11/10/20 10:26 [facility]AK [id number]) Sensation Evaluation Gross Sensation Gross Sensation WNL PT-OP-J Posture/Palpation/Skin Start: 11/09/20 08:02 Freq: Status: Active Protocol: Document 01/27/21 08:17 [facility] (Rec: 01/27/21 15:53 [facility] [id number]) Posture Evaluation Position Standing Knee Posture (L) Genu Recurvatum,(R) Genu Recurvatum Ankle/Foot Posture (L) Pronated,(R) Pronated,(R) Forefoot Eversion Palpation Assessment Location plantar fascia Palpation Findings Soft Tissue Tightness brigido heels Palpation Findings Tenderness Palpation Details right greater than left PT-OP-K Range of Motion Start: 11/09/20 08:02 Freq: Status: Active Protocol: Document 01/27/21 08:17 [facility] (Rec: 01/27/21 15:53 [facility] [id number]) Ankle and Foot Goniometric Range of Motion Ankle and Foot brigido Dorsiflexion with Knee Flexed 10 Plantarflexion 65 Comments df knee extended left 5 deg, right 0 Toe Range of Motion Toe brigido Comments decreased toe extension with increased tightness right vs left PT-OP-M Strength Start: 11/09/20 08:02 Freq: Status: Active Protocol: Document 01/27/21 08:17 [facility] (Rec: 01/27/21 15:53 [facility] [id number]) Ankle/Foot Strength Ankle and Foot Manual Muscle Testing Right Dorsiflexion (L4) 5 Normal Plantarflexion (S1) 5 Normal Inversion 4+ Good+ Eversion (S1) 5 Normal Left Dorsiflexion (L4) 5 Normal Plantarflexion (S1) 5 Normal Inversion 5 Normal Eversion (S1) 5 Normal PT-OP-Q Treatments Start: 11/09/20 08:02 Freq: Status: Active Protocol: Document 01/27/21 08:17 [facility] (Rec: 01/27/21 15:53 [facility] [id number]) Therapeutic Exercises Sitting Exercises toe extension Sitting Exercise Name passive stretch Reps/Minutes 1x30 Standing Exercises heel raises Standing Exercise Name sitting or standing Reps/Minutes 5x HC stretch Reps/Minutes 2x Comments JUVENAL, neutral, with IR, cues for soft knees Neuro Re-Education Treatment Balance Activities BOSU balance Details EO, EC Reps/Duration 3' tandem stand/bal Details EO, EC Reps/Duration 2x30 Self-Care/Home Management Treatment Education Patient Education Home Exercise Program,Joint Protection,Pain Management, Posture Other Education self-taping with kinesiotape increased icing, stretching, new HEP PT-OP-R Modalities Start: 11/09/20 08:02 Freq: Status: Active Protocol: Document 01/27/21 08:17 [facility] (Rec: 01/27/21 15:54 [facility] [id number]) Hot Pack/Cold Pack Treatment Ice Massage Location right heel, lateral foot Treatment Duration (minutes) 3 Patient Tolerance Good Iontophoresis Treatment left heel Treatment Medication Dexamethasone (-) Medication Amount (mL) (ml) 1.0 Treatment Duration (minutes) 3 Patient Tolerance Good right heel Treatment Medication Dexamethasone (-) Medication Amount (mL) (ml) 1.0 Medication Dosage 4 mg/ml Treatment Duration (minutes) 3 Patient Tolerance Good Comment Treatment Comment moved more toward lateral foot right Ultrasound Therapy Treatment right heel Patient Position Supine Coupling Medium Ultrasound Gel Frequency Setting (mHz) 3 Duty Cycle 50% Intensity Setting (w/cm2) 1.0 Comments heel and plantar fascia PT-OP-T Assessment and Plan Start: 11/09/20 08:02 Freq: Status: Active Protocol: Document 01/27/21 08:17 [facility] (Rec: 01/27/21 13:15 [facility] [id number]) Physical Therapy Assessment Goals Four Impairment gastrocnemius muscle tightness Short Term Goal (STG) Patient to be independent with gastrocnemius stretching STG Duration 11/28/20 Senior Living Goal (LTG) Patient will demonstrate normal ankle dorsiflexion ROM for improve foot function LTG Duration 02/08/21 Three Impairment Inability to stand, walk, or run without increase in foot pain Short Term Goal (STG) Patient will be able to tolerate a full workday and walk 2-3 miles without an increase in pain STG Duration 12/05/20 Senior Living Goal (LTG) Patient will be able to walk 5 miles, run 2-3 miles without an increase in pain LTG Duration 02/08/21 Two Impairment recurvatum brigido knees, brigido foot pronation, right foot eversion Short Term Goal (STG) Patient to demonstrate good understanding of neutral alignment and be independent with ther ex and self- correction of alignment STG Duration 12/05/20 Fitness Coordinator Goal (LTG) Patient to demonstrate at least 75% improvement in LE alignment statically and dynamically LTG Duration 02/08/21 One Impairment pain brigido heels right greater than left 6/10 Short Term Goal (STG) decrease pain to no greater than 3/10 Senior Living Goal (LTG) decrease pain to no greater than 1/10 LTG Duration 02/08/21 Progress Towards Goals Progress Towards Goals Progressing Toward Goals Physical Therapy Plan Frequency and Duration Frequency of Treatment 20 visits Duration of Treatment 12 weeks Plan of Care Start Date 11/10/20 Plan of Care End Date 02/08/21 Therapeutic Interventions Therapeutic Interventions Gait Training,Home Exercise Program,Manual Therapy, Neuromuscular Re-education, Patient/Caregiver Education, Self-Care/Home Management,Soft Tissue Mobilization,Taping, Therapeutic Activities, Vestibular Rehabilitation Next Visit Focus/Plan Next Note Type Treatment Note Next Visit Plan Assess response to today's session progress with closed chain, functional exercises as tolerated. Continue manual techniques and modalities as needed for pain. yoga toe exercises.
--- NOTE | 2021-03-17 11:53 | PT.OTRE ---
Current Diagnoses Plantar fascial fibromatosis (03/17/21) Pain in right foot (03/17/21) Pain in left foot (03/17/21) Soft tissue disorder, unspecified (03/17/21) Past Medical History (Last Updated 10/20/20 @ 10:06 by China Blanco PA-C) Anxiety Chicken pox Depression Foot pain Frequent UTI History of skin surgery History of surgery Human papilloma virus Hyperlipidemia Pharyngitis Plantar fasciitis, bilateral Shoulder pain Well adult exam Surgical History (Last Updated 04/25/19 @ 22:14 by Linnette Guzman) Anesthesia History of skin surgery History of surgery History of third molar tooth extraction Visit Care Team Role Provider Type Anant Watt DO Primary Care Provider Physician Specialty: Family Practice Address: [address] [place] [address], [address] Email: [email or web address] Attending Provider Physician Referring Provider Specialty: Podiatry Address: [address] [place] [address], [address] Email: [email or web address] Physical Therapy Re-Evaluation PT-OP-A Visit Information Start: 11/09/20 08:02 Freq: Status: Active Protocol: Document 03/17/21 08:16 [facility] (Rec: 03/17/21 09:02 [facility] [id number]) Out-Patient Physical Therapy Visit Information Visit Information Visit Type Progress Note Visit Start Time 08:15 Visit Stop Time 09:10 Total Visit Minutes 55 Visit Number 4 PT-OP-B Current Condition Start: 11/09/20 08:02 Freq: Status: Active Protocol: Document 11/25/20 09:00 [facility] (Rec: 11/25/20 09:48 SAK [id number]) Current Condition History of Current Condition Onset Date 1 year Current Complaints bilateral foot pain right greater than left History of Current Condition Made the decision to start running to try to help with weight loss. Pain started in left foot plus developed solis splints. Now left foot mostly better except occasional pain , pain right foot persists, at this time cant jog or run 50 ft without experiencing severe pain in right heel. Aso affecting right knee. Looked up information online about how to deal with plantar fascitis and as been doing stretching, ankle motion , heel and toe raises, grabbing things with toes, using objects including frozen water bottle to roll out bottom of foot muscles , tool massaging calves, doing ABC's. Feels pain as soon as gets out of bed. Had 1 deep foot massage that relieved pain for a few days a few months ago, though didn't try running at that time. Has plantar fascitis off the shelf orthotics Superfeet, but is now trying Envelop gel orthotics which she reports have made some difference. 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 Has a 10K in March 2021. Has been running for 2 years. Tends to push hard when she runs. Currently walking [employer] 1x/wk, sore next day. No biking, or other cross training. Has Saw Dr. Hanna Future Testing and Treatments Planned follow-up with Dr. Hanna after PT PT-OP-C Subjective Start: 11/09/20 08:02 Freq: Status: Active Protocol: Document 03/17/21 08:16 [facility] (Rec: 03/17/21 09:02 [facility] [id number]) OP-PT Subjective Patient Comments Patient Comments Working 50+ hours per week so has stopped training for 10k, plans to walk it with friend. Feels good most of the time that she's working, still has problem wearing certain shoes including flats and heels; states can't wear due to pain. Always wearing tennis shoes with heel cushion otherwise pain increases. Hasn't been self taping or doing HEP due to busy schedule. Having LBP due to agressively grabbing hamper with wet towels 2 days ago. Minimal ability to comply with HEP or self-care due to fatigue from schedule. Patient Questionnaires Lower Extremity Functional Scale LEFS Score 75 OP-PT Pain Assessment Pain Assessment Grid Paper Pain Assessment Grid Completed Yes Location bilateral heels Scale Used Numeric (0 - 10) Pain Aggravating Factors Activity,Exercise,Standing, Walking,Stair Climbing Pain Alleviating Factors Cold,Inactivity,Rest Comments Pain Comments 0-4/10 right heel PT-OP-D Balance Start: 11/09/20 08:02 Freq: Status: Active Protocol: Document 11/10/20 09:03 [facility] (Rec: 11/10/20 10:26 SAK [id number]) OP-PT Balance Assessment Standing Balance Static Standing Balance Ability Normal Dynamic Standing Balance Ability Normal Standing Balance Comments SLS 10+ sec brigido Abbie Fall Scale Copyright Permission Abbie JM, Abbie RM, Ezequiel SJ. Development of a scale to identify the fall- prone patient. Can J Aging 1989;8;366-7. Marisela Leiva (2009). Preventing patient falls. (2nd ed). [place]: [employer]. PT-OP-F Manual Assessment Start: 11/09/20 08:02 Freq: Status: Active Protocol: Document 11/10/20 09:03 [facility] (Rec: 11/10/20 10:26 SAK [id number]) Manual Assessments Joint Mobility Assessment Joint Mobility Assessment hypermobile throughout, hyperextends knees PT-OP-G Mobility & Gait Start: 11/09/20 08:02 Freq: Status: Active Protocol: Document 11/10/20 09:03 [facility] (Rec: 11/10/20 10:26 [facility]AK [id number]) OP Gait Assessment Gait Gait Assistance Required: Independent Assistive Devices Assistive Device None Gait Deviations General Gait Pattern Antalgic Factors Limiting Gait Function Factors Limiting Gait Function Pain Comments Gait Comments knee hyperextension with heavy heelstrike PT-OP-H Neuro Start: 11/09/20 08:02 Freq: Status: Active Protocol: Document 11/10/20 09:03 [facility] (Rec: 11/10/20 10:26 SAK [id number]) Sensation Evaluation Gross Sensation Gross Sensation WNL PT-OP-J Posture/Palpation/Skin Start: 11/09/20 08:02 Freq: Status: Active Protocol: Document 01/27/21 08:17 [facility] (Rec: 01/27/21 15:53 [facility] [id number]) Posture Evaluation Position Standing Knee Posture (L) Genu Recurvatum,(R) Genu Recurvatum Ankle/Foot Posture (L) Pronated,(R) Pronated,(R) Forefoot Eversion Palpation Assessment Location plantar fascia Palpation Findings Soft Tissue Tightness brigido heels Palpation Findings Tenderness Palpation Details right greater than left PT-OP-K Range of Motion Start: 11/09/20 08:02 Freq: Status: Active Protocol: Document 01/27/21 08:17 [facility] (Rec: 01/27/21 15:53 [facility] [id number]) Ankle and Foot Goniometric Range of Motion Ankle and Foot Measured in Degrees brigido Dorsiflexion with Knee Flexed 10 Plantarflexion 65 Comments df knee extended left 5 deg, right 0 Toe Range of Motion Toe Measured in Degrees brigido Comments decreased toe extension with increased tightness right vs left PT-OP-M Strength Start: 11/09/20 08:02 Freq: Status: Active Protocol: Document 01/27/21 08:17 [facility] (Rec: 01/27/21 15:53 [facility] [id number]) Ankle/Foot Strength Ankle and Foot Manual Muscle Testing Right Dorsiflexion (L4) 5 Normal Plantarflexion (S1) 5 Normal Inversion 4+ Good+ Eversion (S1) 5 Normal Left Dorsiflexion (L4) 5 Normal Plantarflexion (S1) 5 Normal Inversion 5 Normal Eversion (S1) 5 Normal PT-OP-Q Treatments Start: 11/09/20 08:02 Freq: Status: Active Protocol: Document 03/17/21 08:16 [facility] (Rec: 03/17/21 09:02 [facility] [id number]) Cardio Equipment Bicycle (Upright) Duration (Minutes) 8 Resistance 5 Seat Position 4 Other cues for neutral LE alignment Gym Equipment Shuttle Balance chains red Details bal and wt shift front/bck, side bal Therapeutic Exercises Supine Exercises foot inv/ev, df Equipment Used L2 TB Reps/Minutes 10x ea Sitting Exercises toe extension Sitting Exercise Name passive stretch Reps/Minutes 1x30 Standing Exercises tandem stand Reps/Minutes 30x2 heel raises Standing Exercise Name sitting or standing Reps/Minutes 5x HC stretch Reps/Minutes 2x Comments JUVENAL, neutral, with IR, cues for soft knees Manual Therapy Treatment Soft Tissue Mobilization calf Body Location right Intensity/Depth Moderate Body Position Hooklying medial longitudinal arch Body Location right Intensity/Depth Moderate Body Position Hooklying Taping left foot and calf Type of Tape Kinesio Tape Skin Inspection intact Comments I strip achored at heel with foot in df; paper off tension to base of toes and to proximal calf centrally I strip for arch support Self-Care/Home Management Treatment Education Patient Education Home Exercise Program,Pain Management Activities Self-Care/Home Management Activities Gradually increase activity as tolerated. Cross training with biking, water walking PT-OP-R Modalities Start: 11/09/20 08:02 Freq: Status: Active Protocol: Document 03/17/21 08:16 [facility] (Rec: 03/17/21 09:02 [facility] [id number]) Hot Pack/Cold Pack Treatment Ice Massage Comments refused today Iontophoresis Treatment right heel Treatment Medication Dexamethasone (-) Medication Amount (mL) (ml) 1.0 Medication Dosage 4 mg/ml Treatment Duration (minutes) 3 Patient Tolerance Good Ultrasound Therapy Treatment right heel Patient Position Supine Coupling Medium Ultrasound Gel Frequency Setting (mHz) 3 Duty Cycle 50% Intensity Setting (w/cm2) 1.0 Comments heel and plantar fascia PT-OP-T Assessment and Plan Start: 11/09/20 08:02 Freq: Status: Active Protocol: Document 03/17/21 08:16 [facility] (Rec: 03/19/21 11:53 [facility] [id number]) Physical Therapy Assessment Goals Four Impairment gastrocnemius muscle tightness Short Term Goal (STG) Patient to be independent with gastrocnemius stretching 03/17/21: Goal progressneeded further review and cues for correct form and options STG Duration 04/16/21 Tuber Helper Goal (LTG) Patient will demonstrate normal ankle dorsiflexion ROM for improve foot function 03/17/21: min progress due to heavy work schedule and fatigue from same LTG Duration 05/16/21 Three Impairment Inability to stand, walk, or run without increase in foot pain Short Term Goal (STG) Patient will be able to tolerate a full workday and walk 2-3 miles without an increase in pain 03/16/21: some goal progress as patient reports minimal difficulty at work, though due to heavy work schedule, not having time or energy to exercise outside of work STG Duration 04/16/21 Tuber Helper Goal (LTG) Patient will be able to walk 5 miles, run 2-3 miles without an increase in pain 03/17/21: patient has not tried to run recently due to heavy work schedule LTG Duration 05/16/21 Two Impairment recurvatum brigido knees, brigido foot pronation, right foot eversion Short Term Goal (STG) Patient to demonstrate good understanding of neutral alignment and be independent with ther ex and self- correction of alignment 03/17/21: goal progress STG Duration 04/16/21 Tuber Helper Goal (LTG) Patient to demonstrate at least 75% improvement in LE alignment statically and dynamically 03/17/21: some goal progress LTG Duration One Impairment pain brigido heels right greater than left 6/10 Short Term Goal (STG) decrease pain to no greater than 3/10 03/17/21: pain level rated at 0 -4/10 today on right, states very minimal pain left, but no recent attempts at walking or running for exercise STG Duration 04/16/21 Tuber Helper Goal (LTG) decrease pain to no greater than 1/10 LTG Duration 05/16/21 Assessment Summary Assessment Since last seen in PT has increased work load and has not had time or energy to do HEP or try any walking or running for exercise. Has decided she won't be running but will walk 10k next month. Patient reports she has to wear tennis shoes with gel insert or her feet hurt with any other footwear at this time. Minimal pain now left foot, and decreased in right foot, but again hasn't pushed activity level in terms of long walks or attempts at running. Would benefit from further PT to continue to address above goals to decrease patient pain and improve her activity tolerance . Physical Therapy Plan Frequency and Duration Frequency of Treatment 20 visits Duration of Treatment 12 weeks Plan of Care Start Date 11/10/20 Plan of Care End Date 02/08/21 Therapeutic Interventions Therapeutic Interventions Gait Training,Home Exercise Program,Manual Therapy, Neuromuscular Re-education, Patient/Caregiver Education, Self-Care/Home Management,Soft Tissue Mobilization,Taping, Therapeutic Activities, Vestibular Rehabilitation Next Visit Focus/Plan Next Note Type Treatment Note Next Visit Plan Continue PT per POC with progression of therapeutic exercises, manual techniques, and modalities as needed.
--- NOTE | 2021-03-17 11:54 | PT.OPPOC ---
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) Pain in right foot (03/17/21) Pain in left foot (03/17/21) Soft tissue disorder, unspecified (03/17/21) Visit Care Team Role Provider Type Anant Watt DO Primary Care Provider Physician Specialty: Family Practice Address: [address] [place] [address], [id number] Email: [email or web address] Corrie Hanna DPM Attending Provider Physician Referring Provider Specialty: Podiatry Address: [address] [place] [address], [id number] Email: [email or web address] Plan Of Care PT-OP-T Assessment and Plan Start: 11/09/20 08:02 Freq: Status: Active Protocol: Document 03/17/21 08:16 [facility] (Rec: 03/19/21 11:53 [facility] [id number]) Physical Therapy Assessment Goals Four Impairment gastrocnemius muscle tightness Short Term Goal (STG) Patient to be independent with gastrocnemius stretching 03/17/21: Goal progressneeded further review and cues for correct form and options STG Duration 04/16/21 Barrel Rifler Operator Goal (LTG) Patient will demonstrate normal ankle dorsiflexion ROM for improve foot function 03/17/21: min progress due to heavy work schedule and fatigue from same LTG Duration 05/16/21 Three Impairment Inability to stand, walk, or run without increase in foot pain Short Term Goal (STG) Patient will be able to tolerate a full workday and walk 2-3 miles without an increase in pain 03/16/21: some goal progress as patient reports minimal difficulty at work, though due to heavy work schedule, not having time or energy to exercise outside of work STG Duration 04/16/21 Prison Goal (LTG) Patient will be able to walk 5 miles, run 2-3 miles without an increase in pain 03/17/21: patient has not tried to run recently due to heavy work schedule LTG Duration 05/16/21 Two Impairment recurvatum brigido knees, brigido foot pronation, right foot eversion Short Term Goal (STG) Patient to demonstrate good understanding of neutral alignment and be independent with ther ex and self- correction of alignment 03/17/21: goal progress STG Duration 04/16/21 Barrel Rifler Operator Goal (LTG) Patient to demonstrate at least 75% improvement in LE alignment statically and dynamically 03/17/21: some goal progress LTG Duration One Impairment pain brigido heels right greater than left 10 Short Term Goal (STG) decrease pain to no greater than 3/10 03/17/21: pain level rated at 0 -4/10 today on right, states very minimal pain left, but no recent attempts at walking or running for exercise STG Duration 04/16/21 Prison Goal (LTG) decrease pain to no greater than 1/10 LTG Duration 05/16/21 Assessment Summary Assessment Since last seen in PT has increased work load and has not had time or energy to do HEP or try any walking or running for exercise. Has decided she won't be running but will walk 10k next month. Patient reports she has to wear tennis shoes with gel insert or her feet hurt with any other footwear at this time. Minimal pain now left foot, and decreased in right foot, but again hasn't pushed activity level in terms of long walks or attempts at running. Would benefit from further PT to continue to address above goals to decrease patient pain and improve her activity tolerance . Physical Therapy Plan Frequency and Duration Frequency of Treatment 20 visits Duration of Treatment 12 weeks Plan of Care Start Date 11/10/20 Plan of Care End Date 02/08/21 Therapeutic Interventions Therapeutic Interventions Gait Training,Home Exercise Program,Manual Therapy, Neuromuscular Re-education, Patient/Caregiver Education, Self-Care/Home Management,Soft Tissue Mobilization,Taping, Therapeutic Activities, Vestibular Rehabilitation Next Visit Focus/Plan Next Note Type Treatment Note Next Visit Plan Continue PT per POC with progression of therapeutic exercises, manual techniques, and modalities as needed. Plan of Care Dates Plan of Care Start Date 11/10/20 Plan of Care End Date 02/08/21 Electronically Signed by: Destinee Sinha, PT 03/19/21 [id number] Please Sign and Return: I have reviewed this Plan of Care and certify that the skilled therapy services above are required to meet the patient?s needs. Physician Signature Date Printed Name and Credentials Clinical Instructor Signature Printed Name and Credentials
--- NOTE | 2021-04-09 09:19 | PT.OTN ---
Current Diagnoses Plantar fascial fibromatosis (04/09/21) Pain in right foot (04/09/21) Pain in left foot (04/09/21) Soft tissue disorder, unspecified (04/09/21) Physical Therapy Treatment Note PT-OP-A Visit Information Start: 11/09/20 08:02 Freq: Status: Active Protocol: Document 04/09/21 08:12 [facility] (Rec: 04/09/21 09:08 [facility] [id number]) Out-Patient Physical Therapy Visit Information Visit Information Visit Type Progress Note Visit Start Time 08:15 Visit Stop Time 09:10 Total Visit Minutes 48 Visit Number 5 PT-OP-B Current Condition Start: 11/09/20 08:02 Freq: Status: Active Protocol: Document 11/25/20 09:00 [facility] (Rec: 11/25/20 09:48 [facility] [id number]) Current Condition History of Current Condition Onset Date 1 year Current Complaints bilateral foot pain right greater than left History of Current Condition Made the decision to start running to try to help with weight loss. Pain started in left foot plus developed solis splints. Now left foot mostly better except occasional pain , pain right foot persists, at this time cant jog or run 50 ft without experiencing severe pain in right heel. Aso affecting right knee. Looked up information online about how to deal with plantar fascitis and as been doing stretching, ankle motion , heel and toe raises, grabbing things with toes, using objects including frozen water bottle to roll out bottom of foot muscles , tool massaging calves, doing ABC's. Feels pain as soon as gets out of bed. Had 1 deep foot massage that relieved pain for a few days a few months ago, though didn't try running at that time. Has plantar fascitis off the shelf orthotics Superfeet, but is now trying Envelop gel orthotics which she reports have made some difference. 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 Has a 10K in March 2021. Has been running for 2 years. Tends to push hard when she runs. Currently walking [place] 1x/wk, sore next day. No biking, or other cross training. Has Saw Dr. Hanna Future Testing and Treatments Planned follow-up with Dr. Hanna after PT PT-OP-C Subjective Start: 11/09/20 08:02 Freq: Status: Active Protocol: Document 04/09/21 08:12 SAK (Rec: 04/09/21 09:08 [facility] [id number]) OP-PT Subjective Patient Comments Patient Comments Increased pain with wearing cute shoes, otherwise pain variable, decreased pain with kinesiotape and iontophoresis. Unfortunately feels $50 copay for PT too much, plus working extra hours and doesn' t have enough time to take care of herself. PT-OP-D Balance Start: 11/09/20 08:02 Freq: Status: Active Protocol: Document 11/10/20 09:03 SAK (Rec: 11/10/20 10:26 SAK [id number]) OP-PT Balance Assessment Standing Balance Static Standing Balance Ability Normal Dynamic Standing Balance Ability Normal Standing Balance Comments SLS 10+ sec brigido Leiva Fall Scale Copyright Permission PT-OP-F Manual Assessment Start: 11/09/20 08:02 Freq: Status: Active Protocol: Document 11/10/20 09:03 [facility] (Rec: 11/10/20 10:26 [facility] [id number]) Manual Assessments Joint Mobility Assessment Joint Mobility Assessment hypermobile throughout, hyperextends knees PT-OP-G Mobility & Gait Start: 11/09/20 08:02 Freq: Status: Active Protocol: Document 11/10/20 09:03 SAK (Rec: 11/10/20 10:26 [facility] [id number]) OP Gait Assessment Gait Gait Assistance Required: Independent Assistive Devices Assistive Device None Gait Deviations General Gait Pattern Antalgic Factors Limiting Gait Function Factors Limiting Gait Function Pain Comments Gait Comments knee hyperextension with heavy heelstrike PT-OP-H Neuro Start: 11/09/20 08:02 Freq: Status: Active Protocol: Document 11/10/20 09:03 [facility] (Rec: 11/10/20 10:26 SAK [id number]) Sensation Evaluation Gross Sensation Gross Sensation WNL PT-OP-J Posture/Palpation/Skin Start: 11/09/20 08:02 Freq: Status: Active Protocol: Document 01/27/21 08:17 SAK (Rec: 01/27/21 15:53 SAK [id number]) Posture Evaluation Position Standing Knee Posture (L) Genu Recurvatum,(R) Genu Recurvatum Ankle/Foot Posture (L) Pronated,(R) Pronated,(R) Forefoot Eversion Palpation Assessment Location plantar fascia Palpation Findings Soft Tissue Tightness brigido heels Palpation Findings Tenderness Palpation Details right greater than left PT-OP-K Range of Motion Start: 11/09/20 08:02 Freq: Status: Active Protocol: Document 01/27/21 08:17 [facility] (Rec: 01/27/21 15:53 [facility] [id number]) Ankle and Foot Goniometric Range of Motion Ankle and Foot brigido Dorsiflexion with Knee Flexed 10 Plantarflexion 65 Comments df knee extended left 5 deg, right 0 Toe Range of Motion Toe brigido Comments decreased toe extension with increased tightness right vs left PT-OP-M Strength Start: 11/09/20 08:02 Freq: Status: Active Protocol: Document 01/27/21 08:17 [facility] (Rec: 01/27/21 15:53 [facility] [id number]) Ankle/Foot Strength Ankle and Foot Manual Muscle Testing Right Dorsiflexion (L4) 5 Normal Plantarflexion (S1) 5 Normal Inversion 4+ Good+ Eversion (S1) 5 Normal Left Dorsiflexion (L4) 5 Normal Plantarflexion (S1) 5 Normal Inversion 5 Normal Eversion (S1) 5 Normal PT-OP-Q Treatments Start: 11/09/20 08:02 Freq: Status: Active Protocol: Document 04/09/21 08:12 [facility] (Rec: 04/09/21 09:08 [facility] [id number]) Therapeutic Exercises Standing Exercises HC stretch Reps/Minutes 2x Comments JUVENAL, neutral, with IR, cues for soft knees Manual Therapy Treatment Soft Tissue Mobilization medial longitudinal arch Body Location right Intensity/Depth Moderate Body Position Hooklying Taping left foot and calf Body Location RIGHT FOOT AND CALF Type of Tape Kinesio Tape Skin Inspection intact Comments I strip achored at heel with foot in df; paper off tension to base of toes and to proximal calf centrally I strip for arch support Self-Care/Home Management Treatment Education Patient Education Home Exercise Program,Pain Management Activities Self-Care/Home Management Activities Gradually increase activity as tolerated. Cross training with biking, recumbant stepper PT-OP-R Modalities Start: 11/09/20 08:02 Freq: Status: Active Protocol: Document 04/09/21 08:12 [facility] (Rec: 04/09/21 09:08 [facility] [id number]) Hot Pack/Cold Pack Treatment Ice Massage Treatment Duration (minutes) 3 Patient Tolerance Good Iontophoresis Treatment right heel Treatment Medication Dexamethasone (-) Medication Amount (mL) (ml) 1.0 Medication Dosage 4 mg/ml Treatment Duration (minutes) 3 Patient Tolerance Good Ultrasound Therapy Treatment right heel Patient Position Supine Coupling Medium Ultrasound Gel Frequency Setting (mHz) 3 Duty Cycle 50% Intensity Setting (w/cm2) 1.0 Comments heel and plantar fascia PT-OP-T Assessment and Plan Start: 11/09/20 08:02 Freq: Status: Active Protocol: Document 04/09/21 08:12 [facility] (Rec: 04/09/21 09:08 [facility] [id number]) Physical Therapy Assessment Goals Four Impairment gastrocnemius muscle tightness Short Term Goal (STG) Patient to be independent with gastrocnemius stretching 03/17/21: Goal progressneeded further review and cues for correct form and options STG Duration 04/16/21 Nursing Home Goal (LTG) Patient will demonstrate normal ankle dorsiflexion ROM for improve foot function 03/17/21: min progress due to heavy work schedule and fatigue from same LTG Duration 05/16/21 Three Impairment Inability to stand, walk, or run without increase in foot pain Short Term Goal (STG) Patient will be able to tolerate a full workday and walk 2-3 miles without an increase in pain 03/16/21: some goal progress as patient reports minimal difficulty at work, though due to heavy work schedule, not having time or energy to exercise outside of work STG Duration 04/16/21 Nursing Home Goal (LTG) Patient will be able to walk 5 miles, run 2-3 miles without an increase in pain 03/17/21: patient has not tried to run recently due to heavy work schedule LTG Duration 05/16/21 Two Impairment recurvatum brigido knees, brigido foot pronation, right foot eversion Short Term Goal (STG) Patient to demonstrate good understanding of neutral alignment and be independent with ther ex and self- correction of alignment 03/17/21: goal progress STG Duration 04/16/21 Cyber Analyst Goal (LTG) Patient to demonstrate at least 75% improvement in LE alignment statically and dynamically 03/17/21: some goal progress LTG Duration One Impairment pain brigido heels right greater than left 12/25 Short Term Goal (STG) decrease pain to no greater than 3/10 03/17/21: pain level rated at 0 -4/10 today on right, states very minimal pain left, but no recent attempts at walking or running for exercise STG Duration 04/16/21 Nursing Home Goal (LTG) decrease pain to no greater than 1/10 LTG Duration 05/16/21 Assessment Summary Assessment Goals not fully achieved due to patient inability to attend PT consistently, as well as her work demands in which she spends the majority of her time on her feet. Because of working extra hours she is on her feet even more, and not able to do HEP and self-care as recommended. She feels she has all the information to work on her foot pain on her own and has difficulty affording the $50 copay. Requests discharge at this time. May benefit from further PT in the future. Physical Therapy Plan Discharge Physical Therapy Discharge Reasons Patient Request
== END 2021-04-09 09:42 ==
LOC: PHYS 08:15
PROVIDERS: PCP Family Medicine; Referring Provider Podiatrist; Visit Provider Podiatrist
DX: M72.2 Plantar fascial fibromatosis (principal); M79.671 Pain in right foot; M79.672 Pain in left foot; M79.9 Soft tissue disorder, unspecified
CPT/HCPCS: 97035; 97110; 97116; 97140; 97162; 97535

== ENCOUNTER → 2021-04-22 | Outpatient (CLI) | payer OTHER, SELFPAY | PROVIDERS: PCP Family Medicine; Referring Provider Internal Medicine; Visit Provider Internal Medicine | DX: Z23 Encounter for immunization (principal) | CPT/HCPCS: 90471; 90686 ==

== ENCOUNTER → 2021-05-22 09:30 | Outpatient (CLI) | payer OTHER, SELFPAY ==
[2021-05-22] MEDS: COVID-19 VACC #3, MRNA(MOD) 50 MCG/0.25 ML VIAL IM (09:34)
== END ==
PROVIDERS: PCP Family Medicine; Visit Provider Internal Medicine
DX: Z23 Encounter for immunization (principal)
CPT/HCPCS: 0013A; 91301

== ENCOUNTER → 2022-02-03 07:59 | Outpatient (CLI) | payer OTHER, SELFPAY ==
--- NOTE | 2022-02-03 08:00 | DI.MG.S_ITS ---
BILATERAL DIGITAL DIAGNOSTIC MAMMOGRAM 3D/2D: 02/03/2022 CLINICAL: Baseline. Bilateral Breast nodules. No prior exams were available for comparison. The tissue of both breasts is heterogeneously dense. This may lower the sensitivity of mammography. No significant masses, calcifications, or other findings are seen in either breast. IMPRESSION: INCOMPLETE: NEEDS ADDITIONAL IMAGING EVALUATION No mammographic evidence of malignancy. A targeted ultrasound is recommended and will immediately follow. This exam was interpreted at Station ID: [id number]. NOTE: For mammograms, a report in lay terms will be sent to the patient. Approximately 15% of breast malignancies will not be visualized mammographically. In the management of a palpable breast mass, a negative mammogram must not discourage biopsy of a clinically suspicious lesion. Electronically Signed By: Mihai Martin M.D. slc/:02/03/2022 08:58:20 ACR BI-RADS Category 0: Incomplete [id number]
--- NOTE | 2022-02-03 08:00 | DI.US.S_ITS ---
LIMITED ULTRASOUND OF LEFT BREAST: 02/03/2022 CLINICAL: Palpable left breast lump. Comparison is made to exam dated: 02/03/2022 mammogram - [facility]. Real-time ultrasound of the left breast 6-7 o'clock region was performed. King scale images of the real-time examination were reviewed. No significant abnormalities were seen sonographically in the left breast in the region of the palpable abnormality. IMPRESSION: NEGATIVE There is no sonographic evidence of malignancy. Exam findings were conveyed to the patient. Patient is advised to monitor for significant change. Clinical follow-up as needed. Return to annual mammogram screening schedule is recommended. This exam was interpreted at Station ID: [id number]. Electronically Signed By: Mihai Martin M.D. [facility]/:02/03/2022 09:23:58 Entry: - 02/04/2022 13:54:08 letter sent: Normal Exam Ultrasound BI-RADS: 1 Negative
--- NOTE | 2022-02-03 08:00 | DI.US.S_ITS ---
LIMITED ULTRASOUND OF RIGHT BREAST: 02/03/2022 CLINICAL: Palpable right breast lump. Palpable right breast lump by physician. Comparison is made to exam dated: 02/03/2022 mammogram - [facility]. Real-time ultrasound of the right breast 6-7 o'clock and 11 o'clock regions was performed. King scale images of the real-time examination were reviewed. No significant abnormalities were seen sonographically in the right breast in the region of the palpable abnormality. IMPRESSION: NEGATIVE There is no sonographic evidence of malignancy. Exam findings were conveyed to the patient. Patient is advised to monitor for significant change. Clinical follow-up as needed. Return to annual mammogram screening schedule is recommended. This exam was interpreted at Station ID: [id number]. Electronically Signed By: Mihai Martin M.D. slc/:02/03/2022 09:28:40 Entry: - 02/04/2022 13:54:50 Ultrasound BI-RADS: 1 Negative
== END ==
PROVIDERS: PCP Family Medicine; Referring Provider Family Medicine; Visit Provider Family Medicine
DX: N63.25 Unspecified lump in the left breast, overlapping quadrants (principal); N63.13 Unspecified lump in the right breast, lower outer quadrant; R92.8 Other abnormal and inconclusive findings on diagnostic imaging of breast
CPT/HCPCS: 76642; 77066; G0279

== ENCOUNTER → 2022-07-13 13:16 | Outpatient (CLI) | payer OTHER, SELFPAY | PROVIDERS: PCP Family Medicine; Referring Provider Internal Medicine; Visit Provider Internal Medicine | DX: Z23 Encounter for immunization (principal) | CPT/HCPCS: 90471; 90686 ==

== ENCOUNTER → 2022-10-27 09:32 | Outpatient (CLI) | payer OTHER, SELFPAY ==
[2022-10-27 10:05] LABS: Add Manual Diff / Slide Review NO; Basophils Absolute Auto 0 /uL (0-100); Basophils Percent Auto 0.6 % (0-2); Eosinophils Absolute Auto 100 /uL (0-450); Eosinophils Percent Auto 0.8 % (2-4); Hematocrit 41.4 % (36-46); Hemoglobin 14.3 g/dL (12.0-16.0); Lymphocytes Absolute Auto 2300 /uL (1100-4500); Lymphocytes Percent Auto 31.8 % (25-40); Mean Corpuscular HGB Conc 34.5 % (30-36); Mean Corpuscular Hemoglobin 31.1 PG (26-34); Mean Corpuscular Volume 90.2 fL (80-100); Monocytes Absolute Auto 500 /uL (0-900); Monocytes Percent Auto 6.5 % (3-14); Neutrophils Absolute Auto 4400 /uL (1500-7000); Neutrophils Percent Auto 60.3 % (50-75); Platelet Count 183 X10^3/uL (150-400); Red Blood Cell Count 4.59 X10^6/uL (4.0-5.2); Red Cell Distribution Width 13.2 % (11.6-14.8); White Blood Cell Count 7.3 X10^3/uL (4.5-11.0)
[2022-10-27 10:28] LABS: Alanine Aminotransferase 16 IU/L (<35); Albumin 4.1 g/dL (3.5-5.0); Albumin Globulin Ratio 1.4 (1.0-2.8); Alkaline Phosphatase 56 U/L (38-126); Aspartate Aminotransferase 20 IU/L (14-36); BUN Creatinine Ratio 11.3 (6-22); Bilirubin Total 0.6 mg/dL (0.2-1.3); Blood Urea Nitrogen 9 mg/dL (7-17); Carbon Dioxide 27 mmol/L (22-32); Chloride 103 mmol/L (98-107); Cholesterol 228 mg/dL (140-199); Estimated Glomerular Filt Rate > 60 mL/min (>60); Glucose 97 mg/dL (70-100); HDL Cholesterol 67 mg/dL (40-60); HEMOLYSIS < 15 (0-50); LDL Cholesterol Calculated 128 mg/dL (<100); Potassium 4.2 mmol/L (3.4-5.1); Sodium 135 mmol/L (137-145); Total Protein 7.1 g/dL (6.3-8.2); Triglycerides 163 mg/dL (35-150)
[2022-10-27 11:03] LABS: TSH w/ Reflex to FT4 2.38 uIU/mL (0.47-4.68)
== END ==
PROVIDERS: PCP Family Medicine; Referring Provider Family Medicine; Visit Provider Family Medicine
DX: Z00.00 Encounter for general adult medical examination without abnormal findings (principal); E78.5 Hyperlipidemia, unspecified
CPT/HCPCS: 36415; 80053; 80061; 84443; 85025

== ENCOUNTER → 2023-03-10 11:06 | Outpatient (CLI) | payer OTHER, SELFPAY ==
[2023-03-10 13:58] LABS: Urine N gonorrhoeae NOT DETECTED
[2023-03-10 14:06] LABS: Urine Chlamydia NOT DETECTED
== END ==
PROVIDERS: PCP Family Medicine; Referring Provider Physician Assistant; Visit Provider Physician Assistant
DX: Z11.3 Encounter for screening for infections with a predominantly sexual mode of transmission (principal)
CPT/HCPCS: 87491; 87591

== ENCOUNTER → 2023-05-19 11:37 | Outpatient (CLI) | payer OTHER, SELFPAY | PROVIDERS: PCP Family Medicine; Referring Provider Family Medicine; Visit Provider Family Medicine | DX: Z23 Encounter for immunization (principal) | CPT/HCPCS: 90471; 90686 ==

== ENCOUNTER → 2023-05-24 11:19 | Outpatient (CLI) | payer OTHER, SELFPAY ==
[2023-05-24 14:07] LABS: Urine N gonorrhoeae NOT DETECTED
[2023-05-24 14:09] LABS: Urine Chlamydia NOT DETECTED
== END ==
PROVIDERS: PCP Family Medicine; Visit Provider Physician Assistant
DX: R30.0 Dysuria (principal); Z11.3 Encounter for screening for infections with a predominantly sexual mode of transmission
CPT/HCPCS: 87086; 87491; 87591

== ENCOUNTER → 2023-07-15 08:29 | Outpatient (CLI) | payer OTHER, SELFPAY ==
[2023-07-15 10:08] LABS: COVID-19 CEPHEID 4-PLEX PCR POSITIVE (Negative); Influenza A - CEPHEID Flu A NEGATIVE (NEGATIVE); Influenza B - CEPHEID Flu B NEGATIVE (NEGATIVE); Respiratory Syncytial Virus Negative (Negative)
== END ==
PROVIDERS: PCP Family Medicine; Visit Provider Physician Assistant
DX: J02.9 Acute pharyngitis, unspecified (principal); R05.1 Acute cough
CPT/HCPCS: 0241U; 87070; 87147

== ENCOUNTER → 2023-10-17 16:02 | Outpatient (CLI) | payer OTHER, SELFPAY ==
[2023-10-17 17:22] LABS: Influenza A - CEPHEID Flu A NEGATIVE (NEGATIVE); Influenza B - CEPHEID Flu B NEGATIVE (NEGATIVE); Respiratory Syncytial Virus Negative (Negative)
[2023-10-17 17:27] LABS: COVID-19 CEPHEID 4-PLEX PCR Negative (Negative)
== END ==
PROVIDERS: PCP Family Medicine; Visit Provider Physician Assistant
DX: J02.9 Acute pharyngitis, unspecified (principal)
CPT/HCPCS: 0241U; 87070

== ENCOUNTER → 2024-02-20 16:12 | Outpatient (CLI) | payer OTHER, SELFPAY ==
[2024-02-20 17:27] LABS: Add Manual Diff / Slide Review NO; Basophils Absolute Auto 100 /uL (0-100); Basophils Percent Auto 0.6 % (0-2); Eosinophils Absolute Auto 1000 /uL (0-450); Eosinophils Percent Auto 8.2 % (2-4); Hemoglobin 14.6 g/dL (12.0-16.0); Lymphocytes Absolute Auto 4000 /uL (1100-4500); Lymphocytes Percent Auto 34.3 % (25-40); Mean Corpuscular HGB Conc 33.9 % (30-36); Mean Corpuscular Hemoglobin 31.6 PG (26-34); Mean Corpuscular Volume 93.2 fL (80-100); Monocytes Absolute Auto 600 /uL (0-900); Monocytes Percent Auto 5.1 % (3-14); Neutrophils Absolute Auto 6100 /uL (1500-7000); Neutrophils Percent Auto 51.8 % (50-75); Platelet Count 231 X10^3/uL (150-400); Red Blood Cell Count 4.62 X10^6/uL (4.0-5.2); Red Cell Distribution Width 12.5 % (11.6-14.8); White Blood Cell Count 11.7 X10^3/uL (4.5-11.0)
[2024-02-20 18:07] LABS: Alanine Aminotransferase 17 IU/L (<35); Albumin Globulin Ratio 1.4 (1.0-2.8); Alkaline Phosphatase 64 U/L (38-126); Aspartate Aminotransferase 23 IU/L (14-36); BUN Creatinine Ratio 8.8 (6-22); Bilirubin Total 0.6 mg/dL (0.2-1.3); Blood Urea Nitrogen 7 mg/dL (7-17); Calcium 9.2 mg/dL (8.4-10.2); Carbon Dioxide 25 mmol/L (22-32); Chloride 107 mmol/L (98-107); Estimated Glomerular Filt Rate > 60 mL/min (>60); Globulin 2.8 g/dL (1.7-4.1); Glucose 79 mg/dL (70-100); HEMOLYSIS < 15 (0-50); Lipase 135 U/L (23-300); Sodium 138 mmol/L (137-145); Total Protein 6.8 g/dL (6.3-8.2)
== END ==
PROVIDERS: PCP Family Medicine; Referring Provider Family Medicine; Visit Provider Family Medicine
DX: E78.5 Hyperlipidemia, unspecified (principal); R10.9 Unspecified abdominal pain; R11.2 Nausea with vomiting, unspecified; R19.7 Diarrhea, unspecified; R10.819 Abdominal tenderness, unspecified site
CPT/HCPCS: 36415; 80053; 83690; 85025

== ENCOUNTER → 2024-02-22 07:41 | Outpatient (CLI) | payer OTHER, SELFPAY ==
--- NOTE | 2024-02-22 07:42 | DI.US.S_ITS ---
PROCEDURE: US ABDOMEN COMPLETE INDICATIONS: PAIN, BLOATING TECHNIQUE: Real-time scanning was performed of the abdominal and retroperitoneal organs, with image documentation. COMPARISON: None. FINDINGS: Liver: Liver is normal in size and homogeneous in echotexture. Gallbladder: There is no gallstone. No gallbladder wall thickening or pericholecystic fluid. No sonographic Romero's sign. Biliary ducts: Intrahepatic bile ducts are non-dilated. Extrahepatic bile duct caliber measures 3.5 mm. Normal is 6-7 mm or less in diameter, or 10 mm or less post-cholecystectomy. Pancreas: Visualized portions of the pancreas are sonographically normal. Spleen: Spleen is normal in size and homogeneous in echotexture. Kidneys: Kidneys are normal in size and echotexture. Right kidney measures 9.2 cm long; left kidney measures 10.4 cm long. No hydronephrosis or nephrolithiasis. No solid masses. Aorta: Visualized aorta is normal in caliber at less than 3 cm. Iliacs: Proximal common iliac arteries are normal in caliber at less than 2.5 cm. IVC: Intrahepatic inferior vena cava is patent. Miscellaneous: No free abdominal fluid. IMPRESSION: Unremarkable ultrasound examination of abdomen. Dictated by: Christoph Rowe M.D. on 02/22/2024 at 11:08 Approved by: Christoph Rowe M.D. on 02/22/2024 at 11:09
== END ==
PROVIDERS: PCP Family Medicine; Referring Provider Family Medicine; Visit Provider Family Medicine
DX: E78.5 Hyperlipidemia, unspecified (principal); R10.9 Unspecified abdominal pain; R11.2 Nausea with vomiting, unspecified; R19.7 Diarrhea, unspecified; R10.819 Abdominal tenderness, unspecified site
CPT/HCPCS: 76700

== ENCOUNTER → 2024-06-28 14:05 | Outpatient (CLI) | payer OTHER, SELFPAY | PROVIDERS: PCP Family Medicine; Visit Provider Physician Assistant | DX: R10.2 Pelvic and perineal pain (principal); N89.8 Other specified noninflammatory disorders of vagina | CPT/HCPCS: 87086; 87210 ==

== ENCOUNTER → 2024-06-29 10:02 | Outpatient (CLI) | payer OTHER, SELFPAY ==
[2024-06-29 13:55] LABS: Urine N gonorrhoeae NOT DETECTED
[2024-06-29 13:56] LABS: Urine Chlamydia NOT DETECTED
== END ==
PROVIDERS: PCP Family Medicine; Visit Provider Physician Assistant
DX: R10.2 Pelvic and perineal pain (principal)
CPT/HCPCS: 87491; 87591